=== PATIENT | female | born 1930 | race Caucasian/White ===

== ENCOUNTER → 2016-11-02 | Outpatient (CLI) | payer OTHER, BC ==
[~2016-11-02] MED LIST: ACET-1311 PO; ASCA500 PO; ASCO500C3 PO; ASPI81TA28 PO; CALC1TAB9 PO; CALC500T72 PO; CEFA500C PO; CHOL1000 PO; CLC100 PO; DAPT500I IV; DLCS PR; ENOX40IN SQ; FERROUS PO; FERROUS SULFATE PO; FLUT0.15 NAE; FRRG PO; LTR510 PO; LVNIS40 SQ; MAGN250T9 PO; MAGN400T6 PO; MISCCAP80 PO; MLXESC PO; MTR600X PO; MULT-513 PO; MULT-663 PO; MULTCHW PO; NXM/40 PO; OMEP20CA9 PO; PEGSOL8 PO; POLY150C4 PO; PRLSR20 PO; RXC5 PO; SIMV10TA2 PO; SIMV10TA5 PO; SULF800T23 PO; TRAM-10 PO; TRIA1SPR4; ZNT/150 PO
--- NOTE | 2016-11-16 10:24 | CODING QUERY MEDICAL NECESSITY ---
SUPPORTING DIAGNOSIS NEEDED A supporting diagnosis is required for the test/procedure performed on this patient in order for us to be reimbursed by the patient's insurance. Please provide a supporting diagnosis for the following test/procedure listed below next to the test name along with your signature. *If there is no additional diagnosis for this patient that would support the following test/procedure please document that below next to the test/procedure. Test(s)/Procedure(s) that require a supporting diagnosis: * DXA BONE DENSITY DIAGNOSIS: * DOS: 11/02/16 Provider Signature: Date: Thank you Chantel Waddell Health Information Management Once completed, please kindly fax back to [phone] For questions please call [phone]
== END | disposition home or self-care (01) ==
LOC: C.MAMM 14:25
PROVIDERS: ATTEND Internal Medicine
DX: M85.80 Other specified disorders of bone density and structure, unspecified site (principal)

== ENCOUNTER → 2016-11-18 | Outpatient (CLI) | payer OTHER, BC ==
[~2016-11-18] MED LIST changes: -FERROUS PO; -MAGN250T9 PO; -MTR600X PO; -NXM/40 PO; -PEGSOL8 PO; -ZNT/150 PO
[2016-11-18 15:15] LABS: BASO % 0.8 %; BASO ABS # 0.05 K/uL (0-0.2); COMPLETE YES; HEMATOCRIT 33.2 % (37-47); IG% 0.3 %; LYMPH % 28.7 %; LYMPH ABS # 1.73 K/uL (1.2-3.4); MEAN CELL VOLUME 82.4 fL (80-100); MEAN CORPUSCULAR HEMOGLOBIN 26.3 pg (25-34); MEAN CORPUSCULAR HGB CONC 31.9 g/dl (32-36); MEAN PLATELET VOLUME 8.6 fL (7.4-10.4); MONO % 12.1 %; NEUT % 57.1 %; PLATELET COUNT 414 K/uL (130-400); RED BLOOD COUNT 4.03 M/uL (4.2-5.4); WHITE BLOOD COUNT 6.02 K/uL (4.8-10.8)
[2016-11-18 15:27] LABS: ALT/SGPT 23 U/L (12-78); AST/SGOT 13 U/L (15-37); BLOOD UREA NITROGEN 26 mg/dl (7-18); BUN/CREATININE RATIO 30.1 (10-20); C-REACTIVE PROTEIN 2.16 mg/dl (0-0.29); CALCIUM 9.2 mg/dl (8.5-10.1); CARBON DIOXIDE 28 mmol/L (21-32); CHLORIDE 101 mmol/L (98-107); CREATININE 0.88 mg/dl (0.60-1.20); GLUCOSE 100 mg/dl (70-99); POTASSIUM 4.5 mmol/L (3.5-5.1); SODIUM 139 mmol/L (136-145)
[2016-11-18 15:31] LABS: ALB/GLOB RATIO 0.9 (0.9-2); ALKALINE PHOSPHATASE 85 U/L (45-117); CHOLESTEROL 151 mg/dl (0-200); CHOLESTEROL/HDL RATIO 1.8; HDL CHOLESTEROL 82 mg/dl; LDL CHOLESTEROL CALCULATED 61 mg/dl; TRIGLYCERIDES 42 mg/dl (0-150); VERY LOW DENSITY LIPOPROT CALC 8 mg/dl
== END | disposition home or self-care (01) ==
LOC: C.LAB1850 13:27
PROVIDERS: ATTEND Internal Medicine Infectious Disease
DX: Z00.00 Encounter for general adult medical examination without abnormal findings (principal); M00.9 Pyogenic arthritis, unspecified

== ENCOUNTER → 2016-11-24 | Day surgery (SDC) | payer OTHER, BC ==
[2016-11-17 09:56] VITALS: BMI 23.0
[~2016-11-24] VITALS: Ht 157.5 cm; Wt 57.7 kg
[~2016-11-24] MED LIST changes: +FENTANYL CITRATE INJ 50 MCG/1 ML 2 ML VIAL ONE; +LIDOCAINE HCL 2% 2 ML VIAL (20MG/ML) ONE; +PROPOFOL IV EMULSION 10 MG/ML 20 ML VIAL IV ONE; +SODIUM CHLORIDE 0.9% 500ML 500 ML IV ONE
[2016-11-24 13:16] VITALS: Ht 157.5 cm; Wt 57.7 kg
--- NOTE | 2016-11-24 13:43 | Endo History and Physical ---
History & Physical Date of Service: Nov 24, 2016. Chief Complaint: ANEMIA, CONSTIPATION, Referring Physician: DR. ROLLE History of Present Illness 86 yo presenting for evaluation of anemia for colonoscopy-asymptomatic Past Medical History Arthritis, Hypertension, CVA/TIA Past Surgical History Hx Cardiac Surgery: No Hx Internal Defibrillator: No Hx Pacemaker: No Hx Abdominal Surgery: Yes ("A COUPLE" D&C, APPY) Hx of Implantable Prosthesis: No Hx Post-Op Nausea and Vomiting: No Hx Cancer Surgery: No Hx Thoracic Surgery: No Hx Orthopedic: Yes (2000 LT TKA, 2013 RT TKA, 01/2016 RIGHT TKA REVISION, 2015 RT KNEE I&D ) Hx Urinary Tract Surgery: No Family History Colon CA Social History Smoking Status: Never Smoker Hx Substance Use: No Hx Alcohol Use: Yes (SOCIAL) Allergies Coded Allergies: Promethazine (Verified Allergy, Mild, CONTRACTED INTO POSITION, 11/24) Ceftriaxone (Unverified Adverse Reaction, Intermediate, GI ISSUES, 11/24/16 ) Meperidine (Verified Adverse Reaction, Mild, N/V, 11/24/16) Current Medications Reported Home Medications Medications Dose Route/Sig Max Daily Dose Days Date Category [Ferrous Sulfate] 150 Mg PO QAM 11/17/16 Reported Prilosec (Omeprazole) 20 Mg Cap 20 Mg PO BID 11/17/16 Reported Zocor (Simvastatin) 10 Mg Tab 10 Mg PO HS 08/18/16 Reported Probiotic (Probiotic Product) 1 Cap Cap 1 Tab PO QAM 08/18/16 Reported Bactrim Ds 800MG/160MG (Trimethoprim/Sulfamethoxazole) Tab 1 Tab PO BID 05/31/16 Reported Aspirin Ec (Aspirin) 81 Mg Tab 81 Mg PO QAM 04/01/16 Reported Nasacort Allergy 24Hr (Triamcinolone Acetonide (Nasal) 55 Mcg/Act Spr 2 [place] NA HS 02/04/16 Reported Citracal + D3 Maximum (Calcium Citrate-Vitamin D) 1 Tab Tab 1 Tab PO QAM 02/04/16 Reported Centrum Silver (Multiple Vitamins W/ Minerals) 1 Chw Chw 1 Tab PO QAM 11/03/13 Reported Lotrel 5MG/10MG (Amlodipine/Benazepril HCl) 5 Mg/10 Mg Cap 1 Tab PO QAM 04/28/06 Reported Vitamin C * (Ascorbic Acid) 500 Mg Tab 500 Mg PO QAM 04/28/06 Reported Vital Signs Weight (Kilograms): 57.73 Height (Feet): 5 Height (Inches): 2 Date Time Temp Pulse Resp B/P Pulse Ox O2 Delivery O2 Flow Rate FiO2 11/24/16 13:35 36.4 69 20 142/72 97 Room Air Physical Exam General Appearance: WD/WN, no apparent distress Respiratory/Chest: Respiratory effort: no dyspnea Auscultation: breath sounds normal, CTA except as noted, no wheezing, no rales/crackles Cardiovascular: Apical Impulse: not displaced Heart Auscultation: RRR, normal S1, normal S2 Abdomen: Bowel Sounds: normal Inspection & Palpation: soft, non-distended, no tenderness, guarding & rebound Assessment and Plan 86 yo presenting for colonoscopy for anemia
--- NOTE | 2016-11-24 14:12 | Anesthesiology Progress Note ---
Anesthesia Post Op Note Date & Time Nov 24, 2016 at 14:12 Vital Signs Pain Intensity: 0 Vital Signs Past 12 Hours Date Time Temp Pulse Resp B/P Pulse Ox O2 Delivery O2 Flow Rate FiO2 11/24/16 13:35 36.4 69 20 142/72 97 Room Air Notes Mental Status: alert / awake / arousable, participated in evaluation Pt Amnestic to Procedure: Yes Nausea / Vomiting: adequately controlled Pain: adequately controlled Airway Patency, RR, SpO2: stable & adequate BP & HR: stable & adequate Hydration State: stable & adequate Anesthetic Complications: no major complications apparent
--- NOTE | 2016-11-24 14:18 | GI REPORT ---
Procedure Date: 11/24/2016 1:42 PM Procedure: Colonoscopy Indications: Iron deficiency anemia Medicines: General Anesthesia Complications: No immediate complications. Estimated blood loss: None. Estimated Blood Loss: Estimated blood loss: none. Procedure: Pre-Anesthesia Assessment: - Pre-Anesthesia Assessment: - Prior to the procedure, a History and Physical was performed, and patient medications, allergies and sensitivities were reviewed. The patient's tolerance of previous anesthesia was reviewed. Please see [facility] for complete details. - The risks and benefits of the procedure and the sedation options and risks were discussed with the patient. All questions were answered and informed consent was obtained. - Patient identification and proposed procedure were verified prior to the procedure by the physician and the nurse. The procedure was verified in the pre-procedure area in the procedure room. After obtaining informed consent, the endoscope was passed carefully and meticuously under direct vision and only advanced when the lumen was clearly identified, C02 insuflation was utilized throughout the entirity of the procedure. Throughout the procedure, the patient's blood pressure, pulse, and oxygen saturations were monitored continuously. After I obtained informed consent, the scope was passed under direct vision. Throughout the procedure, the patient's blood pressure, pulse, and oxygen saturations were monitored continuously. The scope was introduced through the anus and advanced only to the transverse, identified by appendiceal orifice and ileocecal valve. The colonoscopy was performed without difficulty. The patient tolerated the procedure well. The quality of the bowel preparation was unsatisfactory. Findings: Copious quantities of stool was found in the descending colon, at the splenic flexure and in the transverse colon, precluding visualization. Impression: - Preparation of the colon was unsatisfactory. - Stool in the descending colon, at the splenic flexure and in the transverse colon. - No specimens collected. Recommendation: - Discharge patient to home (with escort). - Repeat colonoscopy at appointment to be scheduled because the bowel preparation was poor. - Return to referring physician as previously scheduled. Rodolfo Johnston MD 11/24/2016 2:18:48 PM This report has been signed electronically. Note Initiated On: 11/24/2016 1:42 PM
--- NOTE | 2016-11-24 14:20 | Discharge Instructions ---
Endoscopy Patient Instructions Date / Procedure(s) Performed Nov 24, 2016. Colonoscopy Allergy Information Coded Allergies: Promethazine (Verified Allergy, Mild, CONTRACTED INTO POSITION, 11/24) Ceftriaxone (Unverified Adverse Reaction, Intermediate, GI ISSUES, 11/24/16 ) Meperidine (Verified Adverse Reaction, Mild, N/V, 11/24/16) Discharge Date / Findings Nov 24, 2016. Poor preparation Will need to be rescheduled Medication Instructions Stopped Medication(s): IRON STOPPED ONE WEEK AGO. Provider Instructions Activity Restrictions - No exercising or heavy lifting for 24 hours. - Do not drink alcohol the day of the procedure. - Do not drive a car or operate machinery until the day after the procedure. - Do not make any important decisions or sign important papers in 24 hours after the procedure. Following Day: - Return to full activity which may include returning to work/school. Diet Start your diet with liquids and light foods (jello, soup, juice, toast). Then eat your usual diet if not nauseated. Treatment For Common After Affects For mild abdominal pain, bloating, or excessive gas: - Rest - Eat lightly - Lie on right side Follow-Up Information Follow-up with DR. ROLLE as scheduled Anesthesia Information What You Should Know You have had a procedure that required some medicine to reduce anxiety and discomfort. This treatment is called moderate sedation. After receiving the treatment, you may be sleepy, but you will be able to breathe on your own. The effects of the treatment may last for several hours. Follow these instructions along with Activity/Diet recommendations noted above: * Do NOT do anything where dizziness or clumsiness would be dangerous. * Rest quietly at home today, then you can be up and about tomorrow. * Have a responsible person stay with you the rest of today. * You may have had an I.V. today. If so, you may take the dressing off later today. Recommendations Call your doctor if: * Trouble breathing * Continuous vomiting for more than 24 hours * Temperature above 101 degrees * Severe abdominal pain or bloating * Pain not relieved by pain medicine ordered * There is increased drainage or redness from any incision * A large amount of rectal bleeding greater than 2-3 tablespoons. (If you had a polyp/s removed or have hemorrhoids, a small amount of blood - from the rectum is to be expected.) * You have any unanswered questions or concerns. IN THE EVENT OF A SERIOUS EMERGENCY, GO TO THE NEAREST EMERGENCY ROOM Your discharge instructions were prepared by provider Rodolfo Johnston. Patient Instructions Signature Page Milagros Reid Patient (or Guardian) Signature/Date: I have read and understand the instructions given to me by my caregivers. Caregiver/RN/Doctor Signature/Date: The above-named patient and/or guardian has received patient instructions on this date. + Original Patient Signature Page (only) stays with chart. Please make copy for patient.
[2016-11-24 14:37] VITALS: BP 144/62; PULSE 77; O2SAT 96
== END | disposition home or self-care (01) ==
LOC: C.GI 13:05
PROVIDERS: ATTEND Internal Medicine
DX: D50.9 Iron deficiency anemia, unspecified (principal); K59.00 Constipation, unspecified; I10 Essential (primary) hypertension; M19.90 Unspecified osteoarthritis, unspecified site; Z86.73 Personal history of transient ischemic attack (TIA), and cerebral infarction without residual deficits; Z90.89 Acquired absence of other organs; Z96.652 Presence of left artificial knee joint; Z68.23 Body mass index [BMI] 23.0-23.9, adult; Z80.0 Family history of malignant neoplasm of digestive organs

== ENCOUNTER → 2016-12-16 | Outpatient (CLI) | payer OTHER, BC ==
[~2016-12-16] MED LIST changes: -FENTANYL CITRATE INJ 50 MCG/1 ML 2 ML VIAL ONE; -LIDOCAINE HCL 2% 2 ML VIAL (20MG/ML) ONE; -PROPOFOL IV EMULSION 10 MG/ML 20 ML VIAL IV ONE; -SODIUM CHLORIDE 0.9% 500ML 500 ML IV ONE
[2016-12-16 13:12] LABS: BASO % 1.1 %; BASO ABS # 0.05 K/uL (0-0.2); COMPLETE YES; EOS % 1.3 %; HEMATOCRIT 33.4 % (37-47); IG% 0.2 %; LYMPH % 42.5 %; LYMPH ABS # 2.01 K/uL (1.2-3.4); MEAN CELL VOLUME 83.3 fL (80-100); MEAN CORPUSCULAR HEMOGLOBIN 26.2 pg (25-34); MEAN CORPUSCULAR HGB CONC 31.4 g/dl (32-36); MEAN PLATELET VOLUME 8.6 fL (7.4-10.4); MONO % 12.3 %; NEUT % 42.6 %; PLATELET COUNT 411 K/uL (130-400); RED BLOOD COUNT 4.01 M/uL (4.2-5.4); WHITE BLOOD COUNT 4.73 K/uL (4.8-10.8)
[2016-12-16 15:01] LABS: ALT/SGPT 24 U/L (12-78); AST/SGOT 15 U/L (15-37); BLOOD UREA NITROGEN 16 mg/dl (7-18); BUN/CREATININE RATIO 25.8 (10-20); CALCIUM 9.1 mg/dl (8.5-10.1); CARBON DIOXIDE 28 mmol/L (21-32); CHLORIDE 101 mmol/L (98-107); CREATININE 0.63 mg/dl (0.60-1.20); GLUCOSE 78 mg/dl (70-99); POTASSIUM 4.6 mmol/L (3.5-5.1); SODIUM 137 mmol/L (136-145)
[2016-12-16 15:04] LABS: ALB/GLOB RATIO 0.9 (0.9-2); ALKALINE PHOSPHATASE 83 U/L (45-117)
== END | disposition home or self-care (01) ==
LOC: C.LAB1850 12:07
PROVIDERS: ATTEND Internal Medicine Infectious Disease
DX: A49.01 Methicillin susceptible Staphylococcus aureus infection, unspecified site (principal)

== ENCOUNTER 2016-12-17 12:00 | Emergency (ER) | payer OTHER, BC ==
[~2016-12-17] VITALS: Ht 157.5 cm; Wt 57.0 kg
[~2016-12-17 12:00] MED LIST changes: -ACET-1311 PO; -ASCO500C3 PO; -CALC500T72 PO; -CEFA500C PO; -CHOL1000 PO; -CLC100 PO; -DAPT500I IV; -DLCS PR; -ENOX40IN SQ; -FLUT0.15 NAE; -FRRG PO; -LVNIS40 SQ; -MAGN400T6 PO; -MLXESC PO; -MULT-513 PO; -MULT-663 PO; -POLY150C4 PO; -PRLSR20 PO; -RXC5 PO; -SIMV10TA2 PO; -TRAM-10 PO
[2016-12-17 12:02] VITALS: Ht 157.5 cm; Wt 57.0 kg
--- NOTE | 2016-12-17 13:32 | EMERGENCY ROOM VISIT NOTE ---
History Report prepared by Reynaldo: Lucia Tavarez Under the Supervision of: Dr. Chikis Marr M.D. First contact with patient: 13:13 Chief Complaint: FALL Stated Complaint: FELL, LEFT WRIST PAIN, CUT NEAR EYE ON LEFT SIDE History of Present Illness The patient is a 86 year old female who presents to the Emergency Room with complaints of constant pain from injuries following a fall that occurred a few hours prior to arrival. The patient states that she was outside trimming her bushes when she lost her balance on the slope of the yard and fell onto the driveway. The patient fell onto her left hand and also hit the left side of the head. She denies LOC. The patient has a laceration near her left eye. She is also experiencing pain to her left wrist. She notes that she was able to stand up and walk around after the fall. The patient denies pain to any other location. She notes she takes an aspirin a day. Source of History: patient Onset: few hours COMPUTER GAME TESTER Position: other (global) Quality: other (fall) Timing: constant Associated Symptoms: No LOC Note: Patient has left wrist pain and laceration near left eye. Review of Systems See HPI for pertinent positives & negatives. A total of 10 systems reviewed and were otherwise negative. Past Medical & Surgical Medical Problems: (1) Benign hypertension (2) DJD (degenerative joint disease) (3) Hypertension (4) Replacement of total knee joint (5) Stiffness of knee joint (6) Stroke Surgical Problems: (1) History of appendectomy Family History Cancer Social History Smoking Status: Former Smoker Alcohol Use: occasionally Drug Use: none Housing Status: lives alone Current/Historical Medications Scheduled Amlodipine/Benazepril (Lotrel 5MG/10MG), 1 TAB PO QAM Ascorbic Acid (Vitamin C), 500 MG PO DAILY Aspirin (Aspirin Ec), 81 MG PO QAM Calcium Citrate-Vitamin D (Citracal + D3 Maximum), 1 TAB PO QAM Fluticasone Propionate (Nasal) (Flonase Allergy Relief), 2 SPRAYS MALICK DAILY Magnesium Oxide (Mag-Ox), 200 MG PO BID Multiple Vitamins W/ Minerals (Centrum Silver), 1 TAB PO QAM Omeprazole (Prilosec), 20 MG PO BID Polysaccharide Iron Complex (Ferrex 150), 150 MG PO DAILY Probiotic Product (Probiotic), 1 TAB PO QAM Simvastatin (Zocor), 10 MG PO HS Sulfa/Trimethoprim (Bactrim Ds 800MG/160MG), 1 TAB PO BID Scheduled PRN Tramadol (Ultram), 1 TABS PO Q6 PRN for Pain Allergies Coded Allergies: Promethazine (Verified Allergy, Mild, CONTRACTED INTO POSITION, 12/17) Ceftriaxone (Unverified Adverse Reaction, Intermediate, GI ISSUES, 12/17/16 ) Meperidine (Verified Adverse Reaction, Mild, N/V, 12/17/16) Physical Exam Vital Signs Date Time Temp Pulse Resp B/P Pulse Ox O2 Delivery O2 Flow Rate FiO2 12/17/16 16:39 36.5 82 18 126/69 98 12/17/16 15:00 82 18 126/69 12/17/16 12:02 36.5 84 17 147/77 98 Room Air Physical Exam Vital signs reviewed. General: Well-appearing elderly female, in no significant distress. HEENT: No scleral icterus, PERRLA, neck supple. Atraumatic. Small abrasion to left religion with 0.5 cm laceration to orbital rim, no active bleeding, edges are well approximated. Cervical spine non tender. Cardiovascular: Regular rate and rhythm, no extra sounds. Pulmonary: Clear to auscultation bilaterally, normal work of breathing. Abdomen: Soft, nontender, nondistended, positive bowel sounds. Musculoskeletal: Atraumatic, no peripheral edema. left wrist has dorsal swelling over distal radius, neurovascularly intact, full range of motion, no open skin. Neurologic: Patient awake alert and oriented x 3, full strength in all 4 extremities. Cranial nerves 2 through 12 grossly intact. Skin: Warm, dry, no rash Medical Decision & Procedures ER Provider Diagnostic Interpretation: X-ray results as stated below per my interpretation and radiologist interpretation. Other radiology results as stated below per my review and radiologist interpretation: LEFT WRIST 4 VIEWS HISTORY: Fall with left wrist deformity. COMPARISON: None. FINDINGS: The bones are osteopenic. There is a comminuted and slightly impacted fracture at the distal radius with intra-articular extension. No significant displacement. Diffuse soft tissue swelling. No dislocation. The carpal bones appear intact. No radiopaque foreign bodies. IMPRESSION: Distal left radius fracture as described above. Electronically signed by: Hector Blevins M.D. 12/17/2016 2:01 PM Dictated Date/Time: 12/17/2016 2:[address]AST CT DOSE: 537.48 mGy.cm HISTORY: Trauma fall, [facility] TECHNIQUE: Multiaxial CT images of the head were performed without the use of intravenous contrast. Comparison: None. Findings: The paranasal sinuses and mastoid air cells are clear. Chronic small vessel change throughout both cerebral hemispheres. Small old infarct right internal capsule. No acute intracranial hemorrhage. No midline shift. Impression: Age-related change. No acute process. Electronically signed by: Naman Lee M.D. 12/17/2016 2:46 PM Dictated Date/Time: 12/17/2016 2:46 PM Medications Administered Medications (Trade) Dose Ordered Sig/Abbie Route Start Time Stop Time Status Last Admin Dose Admin Tramadol HCl (Ultram Tab) 50 mg NOW STAT PO 12/17/16 13:37 12/17/16 13:39 DC 12/17/16 14:05 50 MG Procedure Location: Left lateral orbital rim Total length: 0.5 cm Complexity: Simple Verbal consent was obtained after the risks and benefits were explained, including but not limited to bleeding, scarring, infection, pain, and bone/joint /nerve damage. At this time, the risks of the procedure are less than the risks of NOT performing the procedure. A time out was taken and the correct patient and site identified. The skin was prepped with betadine. The skin was re- prepped with betadine and a sterile field set. The wound was explored for foreign bodies and none found. Examination revealed no injury to deep structures such as tendons, bone, or significant blood vessels. Debridement was not performed. The wound edges were approximated using Durabond. Hemostasis and excellent approximation was achieved. Antibacterial ointment and a sterile dressing applied. Detailed wound care instructions and signs and symptoms of infection reviewed with the patient. No complications and the patient tolerated the procedure well. ED Course 1330: Past medical records reviewed. The patient was evaluated in room C12. A complete history and physical examination was performed. 1337: Ultram Tab 50 mg PO. 1534: I reevaluated the patient. 1600: See procedure note for laceration repair. 1618: Upon reevaluation, the patient appeared to have improvement of her symptoms. I discussed findings with her. She verbalized agreement of the treatment plan. She was discharged home. Medical Decision The patient is a 86 year old female who presents to the ED with complaints of injuries from fall. Differentials include fracture, dislocation, intra- abdominal, pneumothorax, intrathoracic , intracranial, neurologic, as well as other traumatic pathologies were entertained. This patient was evaluated and appeared to be in no significant distress. Physical examination reveals a swelling over the left wrist with tenderness. CT scan of head was performed and is negative for acute intracranial abnormality. X-rays reveal a distal left radius fracture. Patient's laceration was approximated with Dermabond. Please see my procedure note above. Patient was placed in a volar splint. She was discharged with a prescription for tramadol 50 mg every 6 hours as needed for pain. She will follow-up with orthopedic surgery this week for reevaluation. She will return to the ER for worsening of symptoms or any medical concerns. Impression Primary Impression: Closed head injury Additional Impressions: Fracture of left distal radius Facial laceration Fall Scribe Attestation The scribe's documentation has been prepared under my direction and personally reviewed by me in its entirety. I confirm that the note above accurately reflects all work, treatment, procedures, and medical decision making performed by me. Departure Information Dispostion Home / Self-Care Prescriptions Tramadol (Ultram) 50 Mg Tab 1 TABS PO Q6 Y for Pain, #20 TAB Prov: Chikis Marr M.D. 12/17/16 Referrals Alec Mcarthur M.D. (PCP) Forms HOME CARE DOCUMENTATION FORM, IMPORTANT VISIT INFORMATION Patient Instructions My [facility] Additional Instructions Diagnosis: Fall, closed head injury, distal radius fracture Ultram 50 mg every 6 hours as needed for pain. Tylenol 650 mg every 6 hours as needed for pain. Ice and elevate the wrist as much as possible. Remove the splint if it becomes too tight or the fingers swell. Return to the ER for confusion, headaches, vomiting. [facility] fracture this week. Follow-up with your primary care physician regarding the head injury this week. Return to the ER for worsening of symptoms or any medical concerns. Problem Qualifiers Primary Impression: Closed head injury Encounter type: initial encounter Qualified Codes: S09.90XA - Unspecified injury of head, initial encounter Additional Impressions: Fracture of left distal radius Encounter type: initial encounter Fracture type: closed Fracture morphology : other intra-articular Qualified Codes: S52.572A - Other intraarticular fracture of lower end of left radius, initial encounter for closed fracture Facial laceration Encounter type: initial encounter Qualified Codes: S01.81XA - Laceration without foreign body of other part of head, initial encounter Fall Encounter type: initial encounter Qualified Codes: W19.XXXA - Unspecified fall, initial encounter
[2016-12-17] MEDS ORDERED: TRAMADOL HCL 50 MG TAB PO STA (13:37)
--- NOTE | 2016-12-17 14:03 | DIAGNOSTIC IMAGING REPORT ---
LEFT WRIST 4 VIEWS HISTORY: Fall with left wrist deformity. COMPARISON: None. FINDINGS: The bones are osteopenic. There is a comminuted and slightly impacted fracture at the distal radius with intra-articular extension. No significant displacement. Diffuse soft tissue swelling. No dislocation. The carpal bones appear intact. No radiopaque foreign bodies. IMPRESSION: Distal left radius fracture as described above. Electronically signed by: Hector Blevins M.D. 12/17/2016 2:01 PM Dictated Date/Time: 12/17/2016 2:00 PM
--- NOTE | 2016-12-17 14:48 | DIAGNOSTIC IMAGING REPORT ---
HEAD CT NONCONTRAST CT DOSE: 537.48 mGy.cm HISTORY: Trauma fall, [facility] TECHNIQUE: Multiaxial CT images of the head were performed without the use of intravenous contrast. Comparison: None. Findings: The paranasal sinuses and mastoid air cells are clear. Chronic small vessel change throughout both cerebral hemispheres. Small old infarct right internal capsule. No acute intracranial hemorrhage. No midline shift. Impression: Age-related change. No acute process. Electronically signed by: Naman Lee M.D. 12/17/2016 2:46 PM Dictated Date/Time: 12/17/2016 2:46 PM
[2016-12-17] MEDS ORDERED: POLY150C4 PO (15:12)
[2016-12-17] MEDS ORDERED: MAGN400T6 PO (15:13)
[2016-12-17] MEDS ORDERED: FLUT0.15 NAE (15:13)
[2016-12-17] MEDS ORDERED: ASCO500C3 PO (15:15)
[2016-12-17] MEDS ORDERED: TRAM-10 PO (16:19)
[2016-12-17 16:39] VITALS: BP 126/69; PULSE 82; TEMP 36.5; O2SAT 98
[2017-01-28] MEDS ORDERED: CEFA500C PO (09:54)
[2017-01-28] MEDS ORDERED: TRAM-10 PO (09:54)
[2017-03-25] MEDS ORDERED: SIMV10TA2 PO (14:28)
[2017-03-25] MEDS ORDERED: ASPI81TA28 PO (14:28)
[2017-03-25] MEDS ORDERED: MISCCAP80 PO (14:28)
[2017-03-25] MEDS ORDERED: LTR510 PO (14:30)
[2017-03-25] MEDS ORDERED: ENOX40IN SQ (14:31)
[2017-03-25] MEDS ORDERED: ACET-1311 PO (14:32)
[2017-03-25] MEDS ORDERED: TRAM-10 PO (14:32)
[2017-03-25] MEDS ORDERED: FLUT0.15 NAE (14:33)
[2017-03-25] MEDS ORDERED: PRLSR20 PO (14:33)
[2017-03-25] MEDS ORDERED: MULT-513 PO (14:34)
[2017-03-25] MEDS ORDERED: CALC500T72 PO (14:35)
[2017-03-25] MEDS ORDERED: CHOL1000 PO (14:36)
[2017-03-25] MEDS ORDERED: MULT-663 PO (14:36)
[2017-03-25] MEDS ORDERED: MAGN400T6 PO (14:37)
[2017-03-25] MEDS ORDERED: DAPT500I IV (14:38)
== END 2016-12-17 16:40 | disposition home or self-care (01) ==
LOC: C.EDB 12:02 → C.EDC 16:40
DX: S01.81XA Laceration without foreign body of other part of head, initial encounter (principal); S52.502A Unspecified fracture of the lower end of left radius, initial encounter for closed fracture; S09.90XA Unspecified injury of head, initial encounter; W01.0XXA Fall on same level from slipping, tripping and stumbling without subsequent striking against object, initial encounter; Y92.096 Garden or yard of other non-institutional residence as the place of occurrence of the external cause; I10 Essential (primary) hypertension; Z86.73 Personal history of transient ischemic attack (TIA), and cerebral infarction without residual deficits; M19.90 Unspecified osteoarthritis, unspecified site; Z87.891 Personal history of nicotine dependence; Z79.82 Long term (current) use of aspirin; Z79.899 Other long term (current) drug therapy

== ENCOUNTER → 2016-12-22 | Outpatient (CLI) | payer OTHER, BC ==
[~2016-12-22] MED LIST changes: +ACET-1311 PO; -ASCA500 PO; +ASCO500C3 PO; +CALC500T72 PO; +CEFA500C PO; +CHOL1000 PO; +CLC100 PO; +DAPT500I IV; +DLCS PR; +ENOX40IN SQ; -FERROUS SULFATE PO; +FLUT0.15 NAE; +FRRG PO; +LVNIS40 SQ; +MAGN400T6 PO; +MLXESC PO; +MULT-513 PO; +MULT-663 PO; +POLY150C4 PO; +PRLSR20 PO; +RXC5 PO; +SIMV10TA2 PO; +TRAM-10 PO; -TRIA1SPR4
[2016-12-22 14:39] LABS: FERRITIN 22.9 ng/ml (8.0-388.0)
== END | disposition home or self-care (01) ==
LOC: C.LAB1850 13:26
PROVIDERS: ATTEND Internal Medicine
DX: D64.9 Anemia, unspecified (principal)

== ENCOUNTER → 2017-01-07 | Outpatient (CLI) | payer OTHER, BC ==
[2017-01-07 16:32] LABS: BASO % 0.5 %; BASO ABS # 0.03 K/uL (0-0.2); COMPLETE YES; HEMATOCRIT 33.2 % (37-47); IG% 0.2 %; LYMPH ABS # 1.61 K/uL (1.2-3.4); MEAN CELL VOLUME 80.8 fL (80-100); MEAN CORPUSCULAR HEMOGLOBIN 25.5 pg (25-34); MEAN CORPUSCULAR HGB CONC 31.6 g/dl (32-36); MEAN PLATELET VOLUME 8.5 fL (7.4-10.4); MONO % 17.6 %; NEUT % 54.7 %; PLATELET COUNT 367 K/uL (130-400); RED BLOOD COUNT 4.11 M/uL (4.2-5.4)
[2017-01-07 16:52] LABS: ALT/SGPT 22 U/L (12-78); BLOOD UREA NITROGEN 27 mg/dl (7-18); BUN/CREATININE RATIO 34.4 (10-20); C-REACTIVE PROTEIN 2.39 mg/dl (0-0.29); CALCIUM 8.7 mg/dl (8.5-10.1); CARBON DIOXIDE 30 mmol/L (21-32); CHLORIDE 104 mmol/L (98-107); CREATININE 0.77 mg/dl (0.60-1.20); GLUCOSE 94 mg/dl (70-99); POTASSIUM 4.5 mmol/L (3.5-5.1); SODIUM 139 mmol/L (136-145)
[2017-01-07 16:55] LABS: ALKALINE PHOSPHATASE 98 U/L (45-117); AST/SGOT 18 U/L (15-37)
== END | disposition home or self-care (01) ==
LOC: C.LAB1850 15:23
PROVIDERS: ATTEND Internal Medicine Infectious Disease
DX: A49.01 Methicillin susceptible Staphylococcus aureus infection, unspecified site (principal)

== ENCOUNTER → 2017-01-11 | Outpatient (CLI) | payer OTHER, BC | END | disposition home or self-care (01) | LOC: C.LAB 17:43 | PROVIDERS: ATTEND Orthopaedic Surgery Sports Medicine | DX: S81.001A Unspecified open wound, right knee, initial encounter (principal); X58.XXXA Exposure to other specified factors, initial encounter ==

== ENCOUNTER → 2017-01-15 | Outpatient (CLI) | payer OTHER, BC | END | disposition home or self-care (01) | LOC: C.LAB 17:55 | PROVIDERS: ATTEND Orthopaedic Surgery Sports Medicine | DX: L92.9 Granulomatous disorder of the skin and subcutaneous tissue, unspecified (principal) ==

== ENCOUNTER → 2017-01-19 | Outpatient (CLI) | payer OTHER, BC ==
[2017-01-19 15:41] LABS: BASO % 0.6 %; BASO ABS # 0.04 K/uL (0-0.2); COMPLETE YES; EOS % 0.6 %; HEMATOCRIT 34.3 % (37-47); IG% 0.3 %; LYMPH % 34.1 %; LYMPH ABS # 2.14 K/uL (1.2-3.4); MEAN CELL VOLUME 82.7 fL (80-100); MEAN CORPUSCULAR HEMOGLOBIN 25.5 pg (25-34); MEAN CORPUSCULAR HGB CONC 30.9 g/dl (32-36); MEAN PLATELET VOLUME 8.6 fL (7.4-10.4); MONO % 12.9 %; NEUT % 51.5 %; PLATELET COUNT 398 K/uL (130-400); RED BLOOD COUNT 4.15 M/uL (4.2-5.4); WHITE BLOOD COUNT 6.27 K/uL (4.8-10.8)
[2017-01-19 16:08] LABS: BLOOD UREA NITROGEN 22 mg/dl (7-18); BUN/CREATININE RATIO 41.5 (10-20); C-REACTIVE PROTEIN 1.09 mg/dl (0-0.29); CALCIUM 8.9 mg/dl (8.5-10.1); CARBON DIOXIDE 32 mmol/L (21-32); CHLORIDE 103 mmol/L (98-107); CREATININE 0.52 mg/dl (0.60-1.20); GLUCOSE 102 mg/dl (70-99); POTASSIUM 4.1 mmol/L (3.5-5.1); SODIUM 140 mmol/L (136-145)
== END | disposition home or self-care (01) ==
LOC: C.LAB1850 14:20
PROVIDERS: ATTEND Physician Assistant
DX: L03.115 Cellulitis of right lower limb (principal)

== ENCOUNTER → 2017-02-09 | Outpatient (CLI) | payer OTHER, BC ==
[~2017-02-09] MED LIST changes: -POLY150C4 PO; -SULF800T23 PO
[2017-02-09 17:27] LABS: BASO % 0.8 %; BASO ABS # 0.05 K/uL (0-0.2); COMPLETE YES; EOS % 2.1 %; HEMATOCRIT 35.9 % (37-47); IG% 0.3 %; LYMPH % 35.7 %; LYMPH ABS # 2.33 K/uL (1.2-3.4); MEAN CELL VOLUME 84.9 fL (80-100); MEAN CORPUSCULAR HEMOGLOBIN 25.8 pg (25-34); MEAN CORPUSCULAR HGB CONC 30.4 g/dl (32-36); MEAN PLATELET VOLUME 9.1 fL (7.4-10.4); MONO % 11.7 %; NEUT % 49.4 %; PLATELET COUNT 356 K/uL (130-400); RED BLOOD COUNT 4.23 M/uL (4.2-5.4); WHITE BLOOD COUNT 6.52 K/uL (4.8-10.8)
== END | disposition home or self-care (01) ==
LOC: C.LAB1850 15:59
PROVIDERS: ATTEND Orthopaedic Surgery Sports Medicine
DX: L03.115 Cellulitis of right lower limb (principal); M25.861 Other specified joint disorders, right knee

== ENCOUNTER → 2017-02-09 | Outpatient (CLI) | payer OTHER, BC | END | disposition home or self-care (01) | LOC: C.LABSPEC 18:07 | PROVIDERS: ATTEND Orthopaedic Surgery Sports Medicine | DX: M25.861 Other specified joint disorders, right knee (principal) ==

== ENCOUNTER → 2017-02-23 | Outpatient (CLI) | payer OTHER, BC | END | disposition home or self-care (01) | LOC: C.LAB1850 13:31 | PROVIDERS: ATTEND Physician Assistant | DX: S81.002A Unspecified open wound, left knee, initial encounter (principal); Z86.19 Personal history of other infectious and parasitic diseases; X58.XXXA Exposure to other specified factors, initial encounter ==

== ENCOUNTER → 2017-03-01 | Outpatient (CLI) | payer OTHER, BC ==
[2017-03-01 15:23] LABS: BASO % 0.6 %; BASO ABS # 0.04 K/uL (0-0.2); COMPLETE YES; EOS % 1.6 %; HEMATOCRIT 36.7 % (37-47); IG% 0.1 %; LYMPH % 28.5 %; LYMPH ABS # 1.95 K/uL (1.2-3.4); MEAN CELL VOLUME 85.3 fL (80-100); MEAN CORPUSCULAR HGB CONC 30.5 g/dl (32-36); MEAN PLATELET VOLUME 8.9 fL (7.4-10.4); MONO % 8.8 %; NEUT % 60.4 %; PLATELET COUNT 367 K/uL (130-400); WHITE BLOOD COUNT 6.84 K/uL (4.8-10.8)
[2017-03-01 15:37] LABS: ALT/SGPT 23 U/L (12-78); AST/SGOT 14 U/L (15-37); BLOOD UREA NITROGEN 24 mg/dl (7-18); BUN/CREATININE RATIO 46.1 (10-20); CALCIUM 9.1 mg/dl (8.5-10.1); CARBON DIOXIDE 32 mmol/L (21-32); CHLORIDE 104 mmol/L (98-107); CREATININE 0.51 mg/dl (0.60-1.20); GLUCOSE 122 mg/dl (70-99); POTASSIUM 4.3 mmol/L (3.5-5.1); SODIUM 140 mmol/L (136-145)
[2017-03-01 15:40] LABS: ALKALINE PHOSPHATASE 87 U/L (45-117); C-REACTIVE PROTEIN 1.05 mg/dl (0-0.29)
== END | disposition home or self-care (01) ==
LOC: C.LAB1850 14:19
PROVIDERS: ATTEND Physician Assistant
DX: L03.115 Cellulitis of right lower limb (principal)

== ENCOUNTER → 2017-03-02 | Outpatient (CLI) | payer OTHER, BC ==
[2017-03-02 18:28] LABS: URINE APPEARANCE CLOUDY (CLEAR); URINE BILIRUBIN NEG (NEG); URINE COLOR DK YELLOW; URINE EPITHELIAL CELL AUTO >30 /lpf (0-5); URINE NITRITE NEG (NEG); URINE SPECIFIC GRAVITY 1.029 (1.000-1.030); UROBILINOGEN NEG (NEG); ZZUR CULT IF INDIC CLEAN CATCH YES
--- NOTE | 2017-03-02 18:31 | DIAGNOSTIC IMAGING REPORT ---
CHEST 2 VIEWS ROUTINE CLINICAL HISTORY: Preoperative chest COMPARISON STUDY: 05/31/2016 FINDINGS: The cardiac and mediastinal contours remain stable. There is no failure. There is mild chronic interstitial thickening with a basilar predominance. There are no pleural effusions. There is no lobar consolidation. Degenerative changes are present within the spine.[ IMPRESSION: No active disease in the chest. Electronically signed by: Burke Pierre M.D. 03/02/2017 6:29 PM Dictated Date/Time: 03/02/2017 6:28 PM
[2017-03-02 18:37] LABS: PROTHROMBIN TIME (PATIENT) 10.6 SECONDS (9.0-12.0)
[2017-03-02 18:38] LABS: MANUAL MICROSCOPIC REQUIRED? NO; REVIEW REQ? NO
== END | disposition home or self-care (01) ==
LOC: C.RAD 17:33
PROVIDERS: ATTEND Orthopaedic Surgery Sports Medicine
DX: Z01.812 Encounter for preprocedural laboratory examination (principal); Z01.810 Encounter for preprocedural cardiovascular examination

== ENCOUNTER 2017-03-04 12:30 | Inpatient (IN) | payer OTHER, BC ==
[2017-03-03 16:37] VITALS: BMI 23.0
--- NOTE | 2017-03-03 21:00 | HISTORY & PHYSICAL EXAMINATION ---
DATE OF ADMISSION: 03/04/2017 ADMISSION HISTORY AND PHYSICAL CHIEF COMPLAINT: Chronic right knee infection. HISTORY OF PRESENT ILLNESS: This is an 86-year-old female patient of Dr. Christopher'gurinder complaining of chronic right knee infection. She had an initial right total knee replacement January of 2014. She had an arthroscopic scar tissue removal in January of 2015. In February of 2016, she had a known infection with a poly exchange and I\T\D. Since then, she has had chronic infections with recent multiple sores all growing Staph aureus with cultures taken in the office. At this point in time, the patient wishes to proceed and was recommended to proceed with a right knee total knee revision, removal of all components and insertion of an antibiotic cement spacer. PAST MEDICAL HISTORY: Hypertension, history of a TIA, anemia, acid reflux, and hiatal hernia. SOCIAL HISTORY: Nonsmoker, occasional drinker. FAMILY HISTORY: Noncontributory. REVIEW OF SYSTEMS: The patient complains of chronic right knee infection, has been on chronic antibiotics and has failed recent treatment. Otherwise, denies any shortness of breath, chest pain, nausea, vomiting or any other joint complaints. MEDICATIONS: Include Lotrel 5/10 mg daily, Citrucel daily, vitamin C daily, multivitamin daily, aspirin 81 mg daily, Prilosec daily, simvastatin daily, and cefadroxil 500 mg b.i.d. ALLERGIES: INCLUDE DEMEROL, PHENERGAN AND ROCEPHIN. PHYSICAL EXAMINATION: GENERAL: Well-developed, well-nourished 86-year-old female in no acute distress. She is alert and oriented x3 and pleasant. HEENT: Normocephalic, atraumatic. Extraocular motions are intact. Pupils are equal and reactive to light. HEART: Regular rate and rhythm, no murmurs appreciated. LUNGS: Clear. ABDOMEN: Soft and nontender, bowel sounds are present. EXTREMITIES: Right knee reveals limited range of motion of 0-30 degrees. She is stable. She has got proximal wounds that are draining. She has got multiple wounds with swelling. She has no calf tenderness. Negative Homans sign. NEUROLOGIC: Neurovascularly, she is intact in her left lower extremity. She has had positive cultures from her wounds which all revealed staph aureus. 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 She has a history of hypertension, sleep apnea, transient ischemic attack, anemia, acid reflux, and hiatal hernia. PLAN: The patient was advised of her diagnosis. Indications, risks, benefits, and postop course have all been reviewed. The patient wishes to proceed with a right total knee arthroplasty, removal of all components with insertion of antibiotic cement spacer. Necessary consent forms, preoperative testing and clearances will be obtained. VAIBHAV
[~2017-03-04] VITALS: Ht 157.5 cm; Wt 56.8 kg
[2017-03-04] MEDS: TRANEXAMIC ACID INJ 1,000 MG in SODIUM CHLORIDE 0.9% 100ML 100 ML IV SCH ×2 (06:30→15:26)
[~2017-03-04 12:30] MED LIST changes: -ACET-1311 PO; +ACETAMINOPHEN 500 MG TAB PO SCH; +BUPIVACAINE 0.5 % 5 MG/1 ML PF 10ML VIAL ONE; +BUPIVACAINE/EPINEPHRINE 0.25% 1:200,000 30 ML VIAL ONE; -CALC500T72 PO; +CEFAZOLIN 1000MG/55 ML D5W 55 ML IV SCH; -CHOL1000 PO; -CLC100 PO; +CeleBREX 200 MG CAP PO SCH; -DAPT500I IV; +DEXAMETHASONE 4 MG TAB PO SCH; +DEXAMETHASONE SOD INJ 4 MG/ML VIAL ONE; -DLCS PR; -ENOX40IN SQ; -FRRG PO; +GABAPENTIN 300 MG CAP PO SCH; +LACTATED RINGER'S 1000ML 1,000 ML IV SCH; +LACTATED RINGER'S 1000ML 500 ML IV ONE; +LACTATED RINGER'S 1000ML IV SCH; -LVNIS40 SQ; +METOCLOPRAMIDE HCL 10 MG TAB PO SCH; -MLXESC PO; -MULT-513 PO; -MULT-663 PO; +PATIENT'S HEIGHT AND/OR WEIGHT NEEDED SCH; +POLYMYXIN B SULFATE 100,000 UNITS in NSS 100ML IR SCH; -PRLSR20 PO; -RXC5 PO; -SIMV10TA2 PO; +VANCOMYCIN INJ 400 MG in NSS 100ML IR SCH; +VANCOMYCIN INJ 850 MG in SODIUM CHLORIDE 0.9% 250ML 250 ML IV SCH
[2017-03-04 13:00] VITALS: BP 172/72; PULSE 68; TEMP 36.5; O2SAT 100; Ht 157.5 cm; Wt 56.8 kg
--- NOTE | 2017-03-04 13:27 | History & Physical Bridge Note ---
H&P Re-Evaluation Bridge Note: I have examined the patient, reviewed the History & Physical and in the interval since the performance of the History & Physical I have noted the following changes of clinical significance: No changes noted
[2017-03-04] MEDS ORDERED: VANCOMYCIN HCL 1000MG/20ML VIAL ONE ×3 (14:46→16:42)
[2017-03-04] MEDS ORDERED: TOBRAMYCIN SULF 1.2 GM VIAL (POWDER) ONE ×2 (14:48→16:41)
[2017-03-04] MEDS ORDERED: FENTANYL CITRATE INJ 50 MCG/1 ML 2 ML VIAL ONE ×3 (15:13→17:19)
[2017-03-04] MEDS ORDERED: LIDOCAINE HCL 2% 2 ML VIAL (20MG/ML) ONE ×2 (15:13→16:09)
[2017-03-04] MEDS ORDERED: PROPOFOL IV EMULSION 10 MG/ML 20 ML VIAL IV ONE ×2 (15:13→16:09)
[2017-03-04] MEDS ORDERED: PHENYLEPHRINE 100MCG/ML 5ML SYR IV PRN (15:15)
[2017-03-04] MEDS ORDERED: HYDROmorphone INJ 2 MG/ML SYR/VIAL IV PRN (15:15)
[2017-03-04] MEDS ORDERED: ONDANSETRON INJ 2 MG/ML 2 ML VIAL IV PRN ×2 (15:15→20:15)
[2017-03-04] MEDS ORDERED: EpHEDrine SULFATE INJ 50 MG/ML AMP IV PRN (15:15)
[2017-03-04] MEDS ORDERED: ATROPINE SULFATE 0.1 MG/ML 5ML SYR IV PRN (15:15)
[2017-03-04] MEDS ORDERED: ORTHO JOINT ANESTHETIC ONE (15:24)
[2017-03-04] MEDS ORDERED: BACITRACIN 50000 UNIT VIAL ONE ×3 (15:25→18:05)
[2017-03-04] MEDS ORDERED: POVIDONE-IODINE OP SOLN 30 ML BTL ONE (15:25)
[2017-03-04] MEDS ORDERED: DEXAMETHASONE SOD INJ 4 MG/ML VIAL ONE (16:09)
[2017-03-04] MEDS ORDERED: ONDANSETRON INJ 2 MG/ML 2 ML VIAL ONE (16:09)
[2017-03-04] MEDS ORDERED: KETAMINE HCL INJ 50 MG/ML 10 ML VIAL ONE (16:49)
[2017-03-04] MEDS ORDERED: MoRPHine SULFATE 2 MG/ML CARP IV PRN (20:15)
[2017-03-04] MEDS ORDERED: MAGNESIUM HYDROXIDE SUSP 30 ML UDC PO PRN (20:15)
[2017-03-04] MEDS ORDERED: BISACODYL 10 MG SUPP PR PRN (20:15)
[2017-03-04] MEDS ORDERED: ALUMINUM/MAGNESIUM/SIMETH (MAALOX MAX) 30 ML UDC PO PRN (20:15)
--- NOTE | 2017-03-04 20:27 | DIAGNOSTIC IMAGING REPORT ---
RIGHT KNEE 1 OR 2 VIEWS ROUTINE CLINICAL HISTORY: Verify count. Postoperative evaluation. COMPARISON: Right knee radiograph February 25, 2016. FINDINGS: A total right knee arthroplasty is noted. There is no periprosthetic fracture or lucency. Skin papi and drains are present. Innumerable small radiodensities adjacent to the right knee arthroplasty represent antibiotic impregnated beads. IMPRESSION: 1. Interval placement of antibiotic impregnated beads. Total right knee arthroplasty. No periprosthetic fracture or lucency. Surgical drains in place. 2. No unexpected radiopaque foreign bodies. Electronically signed by: Daniele Farias M.D. 03/04/2017 8:26 PM Dictated Date/Time: 03/04/2017 8:21 PM
--- NOTE | 2017-03-04 20:32 | Anesthesiology Progress Note ---
Anesthesia Post Op Note Date & Time March 04, 2017 at 20:31 Vital Signs Pain Intensity: 0 Vital Signs Past 12 Hours Date Time Temp Pulse Resp B/P Pulse Ox O2 Delivery O2 Flow Rate FiO2 03/04/17 13:00 36.5 68 18 172/72 100 Room Air Notes Mental Status: alert / awake / arousable, participated in evaluation Pt Amnestic to Procedure: Yes Nausea / Vomiting: adequately controlled Pain: adequately controlled Airway Patency, RR, SpO2: stable & adequate BP & HR: stable & adequate Hydration State: stable & adequate Anesthetic Complications: no major complications apparent
--- NOTE | 2017-03-04 20:41 | [facility] Operative Report ---
Operative Report Operative Date March 04, 2017. 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 Procedure(s) Performed right knee extensive debridement of knee joint ,bone ,subcutaneous and skin, synovectomy,excision extensive scar tissue,explant of patella component and tibial poly with tibial poly exchange and stimulan vancomycin bead placement and closure over drains Surgeon Dr. Christopher Hide Curer Surgeon(s) Kishore Gomes PA-C Estimated Blood Loss 75cc Findings deep infection,patella baja ,severe arthrofibrosis,sinus tracts. Specimens A. Explanted Hardware Right Knee b. cultures swab and soft tissue deep joint Drains 2 hemovac Anesthesia general Complication(s) None Disposition Surgical ICU Indications infected total knee with acute worsening of condition I attest to the content of the Intraoperative Record and any orders documented therein. Any exceptions are noted below.
[2017-03-04] MEDS ORDERED: NON-FORMULARY MEDICATION (Omeprazole (Prilosec) 20 MG) PO SCH (21:00)
--- NOTE | 2017-03-04 21:03 | Pharmacy Progress Note ---
Pharmacy Antibiotic Consult Date of Service: March 04, 2017. Pharmacy Dosing Scope Pharmacy is consulted to initiate Vancomycin IV dosing therapy, order appropriate labs and adjust drug dose/frequency. Subjective The patient is a 86 year old female admitted on 03/04/17. Objective Height (Feet): 5 Height (Inches): 2 Weight (Kilograms): 56.80 Micro Results: Item Value Date Time Gram Stain Received 03/04/17 0000 Tissue Knee Right Pending Gram Stain Received 03/04/17 0000 Drainage-Deep Knee Right Pending PATIENT: OLIVIA GLASER LOC: [facility] U # : [id number] AGE/SX: 86/F ROOM: REG : 02/09/[address]: Fidel Christopher M.D. : 1930 BED: DIS : STATUS: REG CLI TLOC: SPEC #: [id number] NOREEN: 02/09/17 STATUS: COMP REQ #: [id number] RECD: 02/09/[address]: Fidel Christopher M.D. SOURCE: JOINT FLSP ENTR: 02/09/[address]: Ava Dueñas, Assigned SPDESC: KNEE RIGHT ORDERED: AER/ADALBERTO CULTSMR Procedure Result Verified Site GRAM STAIN Final 02/10/17-943 RESULT MANY POLYS NO ORGANISMS SEEN OR AER/ADALBERTO CULT Final 02/14/17-1456 Organism 1 STAPHYLOCOCCUS AUREUS QUANITY RARE SENS SENSITIVITY TO FOLLOW ANAS NO ANAEROBES ISOLATED. 1. STAPHYLOCOCCUS AUREUS Target Route Dose RX AB Cost M.I.C. IQ ------ ----- ------ -- ------ -------- - ------ TRIMET/SULFA S <=0.5/ 9.5 * OXACILLIN S <=0.25 VANCOMYCIN S 1 ERYTHROMYCIN R >4 TETRACYCLINE S <=4 CLINDAMYCIN R <=0.5 DAPTOMYCIN S <=0.5 S = SENSITIVE I = INTERMEDIATE R = RESISTANT Assessment & Plan * 86 yo female admitted s/p antibiotic spacer and TKA. Pt with multiple infections s/p initial TKA in January 2014. Previous culture showing MSSA. Additional cultures taken today pending. Vancomycin * Estimated half life is 18 hours. * Pt received Vancomycin 15mg/kg IV preop dose. * Pt remains in ACU. Will begin further Vancomycin therapy upon admission to the floor. * Plan to begin a maintenance regimen of Vancomycin 15mg/kg IV dosed near half life of [id number]. Begin first dose sooner than 18 hours to make up for less than full loading dose given initially. * Will plan to obtain a trough level prior to the 3rd or 4rd maintenance dose. Pharmacy will continue to follow and will adjust dose/frequency as necessary. Thank you
[2017-03-04 21:30] VITALS: BP 159/72; PULSE 81; PULSE 84; TEMP 36.5; O2SAT 97
[2017-03-04 22:01] VITALS: BP 153/68; PULSE 75; TEMP 36.7; O2SAT 99
[2017-03-04] MEDS ORDERED: VANCOMYCIN CONSULT ACTIVE PRN (22:15)
[2017-03-04] MEDS: OXYCODONE HCL 10 MG TABCR (OXYCONTIN) PO SCH (22:25)
[2017-03-04 22:33] VITALS: BP 156/81; PULSE 78; TEMP 36.4; O2SAT 98
[2017-03-04] MEDS: SENNA 8.6 MG TAB PO SCH (22:40)
[2017-03-04] MEDS: DOCUSATE SODIUM 100 MG CAP PO SCH (22:40)
[2017-03-04] MEDS: SIMVASTATIN 10 MG TAB PO SCH (22:41)
[2017-03-04] MEDS: ACETAMINOPHEN 500 MG TAB PO SCH (22:41)
[2017-03-04] MEDS: ASPIRIN 81 MG ECTAB PO SCH (22:41)
[2017-03-04] MEDS: MAGNESIUM OXIDE 400 MG TAB PO SCH (22:41)
[2017-03-04] MEDS: D5W AND 1/2NSS + 20MEQ KCL 1,000 ML IV SCH (22:42)
[2017-03-04 23:30] VITALS: BP 135/64; PULSE 68; TEMP 36.4; O2SAT 100
[2017-03-04] MEDS: VANCOMYCIN INJ 850 MG in SODIUM CHLORIDE 0.9% 250ML 250 ML IV SCH (23:31)
[2017-03-05] VITALS (7 sets, daily range): BP systolic 111–150; BP diastolic 54–71; PULSE 67–83; TEMP 36.4–36.9; O2SAT 92–100
--- NOTE | 2017-03-05 02:05 | OPERATIVE REPORT ---
DATE OF OPERATION: 03/04/2017 INDICATION FOR PROCEDURE: An 86-year-old female with a long history of right knee complications after a total knee replacement. She had an uneventful left knee replacement in the past, was scheduled for a right knee replacement and had that and everything went well, but she developed arthrofibrosis, underwent manipulation under anesthesia, eventual arthroscopic releases, excision of scar tissue, but had unremitting arthrofibrosis. Decision was made after consultation to proceed with downsizing the femoral component to increase range of motion and excise scar tissue as the patient had developed significant patella baja over time. This surgery unfortunately was complicated by infection, had a poly exchange, and was placed on long-term suppressive antibiotics. The patient had some chronic edema in the leg, was having no pain, but unfortunately had recurrent arthrofibrosis and her motion which originally was 90 degrees of flexion after revision surgery dropped back down to only 15-20 degrees of flexion max. She went to painter helper, had a test injection for some pain study and developed increased pain in her knee after that and developed an area of proud flesh over the superolateral knee, it was not clear whether this was a sinus tract or not. She did not have knee effusion and was not particularly painful. This was treated conservatively at first but developed another area of infection in the inferolateral patella, adjacent to the patellar tendon area, and it was felt that she had deep infection at this time, this was aspirated and all cultures grew staph which had similar sensitivities to her original surgery and she was felt to have a deep infection. She did not respond to the suppressive antibiotics, and although she had some improvement in her sed rate and CRP, it was felt that we had to proceed with surgical intervention to remove her implants and debride the joint. Because of her severe patella baja, she most likely is going to be a candidate for knee fusion and is unlikely going to be getting meaningful range of motion after any revision knee replacement. PREOPERATIVE DIAGNOSIS: Left knee infection deep status post total knee revision arthroplasty. POSTOPERATIVE DIAGNOSIS: Same with clear evidence of a sinus tract superolateral knee and 2 areas with subcutaneous skin necrosis inferomedial and inferolateral, adjacent to the patellar tendon over the joint line. Well fixed components with evidence of deep infection with a 6 femoral component which was unable to be removed with conventional cement removal equipment and technique. PROCEDURE: Extensive debridement of scar tissues, synovium, cement removal, and bone debridement, with attempted removal of well-fixed femoral component, with debridement of sinus tracts, reaming subcutaneous tissues and skin when necessary, with debridement being sharp debridement and with rongeur and Versajet debridement. With polyethylene exchange with extraction of patella component and cement and placement of Stimulan antibiotic beads intraarticular and subcutaneous. SURGEON: Dr. Christopher. AUDIO VIDEO MECHANIC: BRUNILDA Ware. ANESTHESIA: General LMA. OPERATIVE PROCEDURE: The patient was taken to the operating room and anesthetized under general anesthetic. We did have positive cultures which were obtained in the office already which matched her previous cultures and I did give her preop vancomycin and she also had Ancef. Then, her leg was examined which demonstrated she had 0 through 15-20 degrees of flexion only and had a fluctuant area in the anteromedial joint line which was felt to be under the skin and she also had a similar swollen area which had the appearance of proud flesh which had not penetrated the skin on the inferolateral area of the knee, which was felt to be likely beginning of a sinus tract and then she had superomedially a small sinus tract. Incision was benign, she had no knee effusion, and she had extensive thickening of the soft tissues chronically and a patella baja. Pneumatic tourniquet was placed about her upper thigh. Her leg was sterilely prepped and draped, it was elevated but not exsanguinated, and pneumatic tourniquet was raised to 300 mmHg. First incision was made through her previous scar, extended slightly more proximally. She had extensive thick scar tissue, 3 cm thick at least. This incision was carried down to the quad tendon. We made the incision a little longer superiorly so we could get down to the natural plane over the quad tendon and then developed that plane distally until we exposed the extensor mechanism which revealed an intact extensor mechanism but a patella baja which was basically locked with patellar scar tissue with no patellar mobility. First, we did track the sinus tract and it was extending through the medial vastus medialis quad tendon area, this was felt to be a true sinus tract. This was debrided into subcutaneous tissues and then the sinus tract. Then, we opened up the medial retinaculum and extended this up into the mid third of the quadriceps tendon and up through the full length of the quad tendon and then carried this down to the medial tibial tubercle and pes tendon area. When we dissected the soft tissues off the medial and lateral sides of the knee, there was sinus tracts that were coming out of the joint into subcutaneous tissues, so the subcutaneous tissues were debrided bilaterally inferomedially and inferolaterally and the outer soft tissue of the fascia was debrided as well where the sinus tracts were coming out of the joint initially. Then, at first I released the scar tissue off the proximal and medial tibial plateau and then did electrocautery synovectomy just removing very thick layer of scarred synovium along the medial retinaculum, up under the medial quad. Thickened, scarred patellar tendon was debrided off the scarred infrapatellar fat pad, leaving the patellar tendon intact, and the exposure was still tight, so I did do a formal quad snip proximally laterally. The snip was made at a 45-degree angle into the quad laterally, extending all the way to the quad tendon. This helped free up some more mobility so we could do synovectomy under the quad tendon around the patella to get better exposure of the infrapatellar scar tissue so that could be removed. Then, I went ahead and used an oscillating saw to remove the patella component and debrided all the cement and plastic out of the patella. There was a little area of pus under the patella component toward the lateral side. Once the joint was opened, we had not done any irrigation, yet we did get cultures intraarticularly. At this point, we had enough exposure to flex the knee slightly. I did flex the knee up to inspect the polyethylene so we could remove the poly, but some of the medial patellar tendon avulsed off the tibial tubercle, the lateral portion was still intact, and that did give us enough exposure to remove the poly using a curved osteotome. This gave us more flexibility so the gutters could be debrided, the posterior synovium could be debrided. Once the poly was removed, there was a large area of fibrinous material behind the post in the notch area, looked suspicious for infectious material, so I did send this for culture as well. I did not send any frozen sections as this was clearly infected. At this time then, we irrigated out the knee copiously with multiple liters of antibiotic solution with bacitracin. Then, I proceeded to use the Ultradrive to remove the cement around the anterior flange of the femoral component, around the lateral medial side of the femoral component, most distal aspect of the femoral component, the posterior aspect, the anterior aspect, and all the cement was removed from either side until we were looking at the box in this posterior stabilized component, it was a closed box, long stem femoral component. At this point, all the cement was removed that we could remove using flexible osteotomes, artist chisels, and a pituitary rongeur. At this time, we attempted to excise the femoral implant, but it was very well fixed and unable to be removed. This included malleting the surface to impact it and try to break the cement and using an extraction device and bone tamp, it was completely solid. Tibia was also noted to be solid. There were some more minor erosions around the edges of the tibial implant. The bone was debrided there. At this point, it was about 2 hours on tourniquet, so we let the tourniquet down to let the leg revascularize for 20 minutes, and then re-elevated the leg and placed tourniquet back up. At this time, I felt I was unable to remove this femoral component with conventional means and she is 86 and did not want to cause any further trauma at this point in time, so it was felt that we would do a staged procedure at this time and go ahead with a polyethylene exchange. We put some trials in place and felt that a 3 x 30 mm poly would give more stability to the knee and so we decided to go ahead with that and placed Stimulan beats within the joint. It was noted that she had some bulging tissue on the inferolateral knee joint area, so I elliptically excised that tissue, debrided the subcutaneous tissues, irrigated out copiously. At this time, we went ahead and did have more thorough debridement with the Versajet along the other soft tissues and subcutaneous tissues where the chronic sinus tracts were debrided. The skin was so thin over the inferolateral area that the friable skin had opened up into a small opening through the skin in that area where there was almost the development of a sinus tract. So this skin was debrided and we debrided the quad tendon, bony surfaces around the implants with pulsatile lavage antibiotic solution and with Versajet. At this point, I then changed instruments and drapes and gloves and then we went ahead and implanted the Seema Triathlon size 3 posterior stabilized 13 mm thick component. Then, around the flanges and under the flanges of the femoral component, the Stimulan beads were packed along all the bony surfaces and we also placed Stimulan beads into each area where the sinus tracts were. Placed Stimulan beads throughout the intraarticular joint and then placed 2 Hemovac drains out. Then, the quad snip was closed with [id number] #1 Vicryl sutures. The quadriceps tendon, medial retinaculum, and medial patellar tendon was closed with interrupted #1 Vicryl sutures. I tested the knee with holding her leg, leaving gravity, allowed flexion of the knee and she had about 10 degrees of flexion and her extensor mechanism was intact. The Stimulan beads were placed into the subcutaneous tissues after we did more irrigation and a Betadine soak and then the subcutaneous tissues were closed with interrupted 2-0 Vicryl and skin was closed with papi and the areas of the debrided sinus tracts were closed with nylon sutures and sterile dressings were applied and the tourniquet was let back down and then a knee immobilizer holding the knee in full extension was applied. The patient had blood loss estimated at about 75 mL and otherwise tolerated the procedure well. BRUNILDA Ware, was my personal care assistant, he functioned as personal care assistant for the entire procedure. He assisted in patient positioning, soft tissue retraction, instrument management, assisted in debridement, and assisted in fascial, subcutaneous and skin closures, and will participate in postoperative care of the patient. I attest to the content of the Intraoperative Record and any orders documented therein. Any exceptio ns are noted below.
[2017-03-05] MEDS: OXYCODONE HCL IR 5 MG TAB (IMMEDIATE RELEASE) PO PRN (02:40)
[2017-03-05] MEDS ORDERED: VANCOMYCIN INJ 850 MG in SODIUM CHLORIDE 0.9% 250ML 250 ML IV SCH (06:00)
[2017-03-05] MEDS ORDERED: POLYMYXIN B SULFATE 100,000 UNITS in NSS 100ML IR SCH (06:00)
[2017-03-05] MEDS ORDERED: VANCOMYCIN INJ 400 MG in NSS 100ML IR SCH (06:00)
[2017-03-05] MEDS: ACETAMINOPHEN 500 MG TAB PO SCH ×3 (06:14→22:45)
[2017-03-05] MEDS: TRAMADOL HCL 50 MG TAB PO PRN ×3 (06:30→21:00)
[2017-03-05] MEDS: D5W AND 1/2NSS + 20MEQ KCL 1,000 ML IV SCH (06:31)
[2017-03-05 07:37] LABS: HEMATOCRIT 34.7 % (37-47); MEAN CELL VOLUME 83.4 fL (80-100); MEAN CORPUSCULAR HGB CONC 31.1 g/dl (32-36); MEAN PLATELET VOLUME 8.9 fL (7.4-10.4); PLATELET COUNT 371 K/uL (130-400); RED BLOOD COUNT 4.16 M/uL (4.2-5.4); WHITE BLOOD COUNT 8.51 K/uL (4.8-10.8)
--- NOTE | 2017-03-05 07:52 | Anesthesiology Progress Note ---
Anesthesia Post Op Note Date & Time March 05, 2017 at 07:51 Vital Signs Pain Intensity: 8.5 Vital Signs Past 12 Hours Date Time Temp Pulse Resp B/P Pulse Ox O2 Delivery O2 Flow Rate FiO2 03/05/17 07:23 36.6 72 18 122/67 92 Room Air 03/05/17 03:40 36.9 83 16 150/70 99 Nasal Cannula 2.0 03/05/17 00:30 36.4 70 16 124/63 100 Nasal Cannula 2.0 03/04/17 23:39 Nasal Cannula 2.0 03/04/17 23:30 36.4 68 16 135/64 100 Nasal Cannula 2.0 03/04/17 22:33 36.4 78 16 156/81 98 Nasal Cannula 2.0 03/04/17 22:01 36.7 75 16 153/68 99 Nasal Cannula 2.0 03/04/17 21:30 Nasal Cannula 2.0 03/04/17 21:30 36.5 84 14 159/72 97 Nasal Cannula 2.0 03/04/17 21:30 Nasal Cannula 2.0 03/04/17 21:30 36.5 81 16 159/72 97 Nasal Cannula 2.0 03/04/17 21:15 36.8 79 20 147/74 97 Nasal Cannula 2 03/04/17 21:05 36.8 80 16 159/76 97 Nasal Cannula 2 03/04/17 20:55 85 17 163/78 97 Nasal Cannula 2 03/04/17 20:45 81 16 163/87 100 Mask 10 03/04/17 20:35 82 16 168/79 100 Mask 10 03/04/17 20:25 36.7 85 12 163/82 100 Mask 10 Notes Mental Status: alert / awake / arousable, participated in evaluation Anesthetic Complications: no major complications apparent
[2017-03-05 08:33] LABS: CALCIUM 9.3 mg/dl (8.5-10.1); CREATININE 0.59 mg/dl (0.60-1.20); POTASSIUM 4.4 mmol/L (3.5-5.1)
--- NOTE | 2017-03-05 08:53 | Orthopedic Progress Note ---
Orthopedic Progress Note Date of Service March 05, 2017. Subjective Post OP Day: 1 Reports: feeling well, pain controlled w PO medications, Denies: SOB, calf pain , chest pain, complaints, light headedness, nausea / vomiting Additional Notes: Intra op gram stain and cxs pending this AM. Objective calves soft nontender, N/V intact, capillary refill less than 2 sec., dressing C /D/I, A&O x3, toes mobile [place] in tact. Date Time Temp Pulse Resp B/P Pulse Ox O2 Delivery O2 Flow Rate FiO2 03/05/17 07:23 36.6 72 18 122/67 92 Room Air 03/05/17 03:40 36.9 83 16 150/70 99 Nasal Cannula 2.0 03/05/17 00:30 36.4 70 16 124/63 100 Nasal Cannula 2.0 03/04/17 23:39 Nasal Cannula 2.0 03/04/17 23:30 36.4 68 16 135/64 100 Nasal Cannula 2.0 03/04/17 22:33 36.4 78 16 156/81 98 Nasal Cannula 2.0 03/04/17 22:01 36.7 75 16 153/68 99 Nasal Cannula 2.0 03/04/17 21:30 Nasal Cannula 2.0 03/04/17 21:30 36.5 84 14 159/72 97 Nasal Cannula 2.0 03/04/17 21:30 Nasal Cannula 2.0 03/04/17 21:30 36.5 81 16 159/72 97 Nasal Cannula 2.0 03/04/17 21:15 36.8 79 20 147/74 97 Nasal Cannula 2 03/04/17 21:05 36.8 80 16 159/76 97 Nasal Cannula 2 03/04/17 20:55 85 17 163/78 97 Nasal Cannula 2 03/04/17 20:45 81 16 163/87 100 Mask 10 03/04/17 20:35 82 16 168/79 100 Mask 10 03/04/17 20:25 36.7 85 12 163/82 100 Mask 10 03/04/17 13:00 36.5 68 18 172/72 100 Room Air Laboratory Results 24 Hours: Test 03/05/17 06:30 Hematocrit 34.7 % Hemoglobin 10.8 g/dL Assessment & Plan Assessment: POD #1, right knee extensive debridement of knee joint ,bone ,subcutaneous and skin,synovectomy,excision extensive scar tissue,explant of patella component and tibial poly with tibial poly exchange and stimulan vancomycin bead placement and closure over drains Plan: PT/ OT- WBAT with immobilizer, NO knee flexion. DVT proph- ASA Await cultures and ID input, on Vanco currently. Disposition- Home w PICC and 6 wks antibxs per ID. Inhouse Planning Pain Management: Oxycontin, Ultram, Morphine, PO Tylenol, Oxy IR DVT Prophylaxis: TEDs, SCDs, ASA Discharge Planning Discharge Planning: home DVT Prophylaxis: ASA
[2017-03-05] MEDS ORDERED: NON-FORMULARY MEDICATION (Probiotic Product (Probiotic) 1 TAB) PO SCH (09:00)
[2017-03-05] MEDS ORDERED: BENAZEPRIL HCL 10 MG TAB PO SCH (09:00)
[2017-03-05] MEDS ORDERED: FLUTICASONE PROPIONATE NA SPR 16 GM BTL NAE SCH (09:00)
[2017-03-05] MEDS: MAGNESIUM OXIDE 400 MG TAB PO SCH ×2 (09:33→21:00)
[2017-03-05] MEDS: MULTIVITAMIN TAB PO SCH (09:33)
[2017-03-05] MEDS: ASPIRIN 81 MG ECTAB PO SCH ×2 (09:33→20:58)
[2017-03-05] MEDS: DOCUSATE SODIUM 100 MG CAP PO SCH ×2 (09:33→20:58)
[2017-03-05] MEDS: CALCIUM 600MG + VIT D 400 IU TAB PO SCH (09:34)
[2017-03-05] MEDS: FERROUS GLUCONATE 324 MG TAB PO SCH ×3 (09:35→17:54)
[2017-03-05] MEDS: PANTOprazole SOD 40 MG TAB PO SCH (09:35)
[2017-03-05] MEDS: AMLODIPINE BESYLATE 5 MG TAB PO SCH (09:36)
[2017-03-05] MEDS: OXYCODONE HCL 10 MG TABCR (OXYCONTIN) PO SCH ×2 (09:41→20:59)
[2017-03-05] MEDS ORDERED: NURSING VERBAL MED ORDER ONE (09:45)
--- NOTE | 2017-03-05 10:26 | Progress Note ---
Progress Note Date of Service March 05, 2017. Progress Note ID Consult Dictated #[id number] A/P: 1. Prosthetic knee infection, chronic, MSSA -Continue vanco, follow final cultures -check blood cultures -will need weekly labs, cbc, cmp, esr, vanco trough while on abx - maintain 15- 20 -will need min 6 weeks IV abx -thank you
--- NOTE | 2017-03-05 11:11 | INFECT. DISEASE CONSULTATION ---
DATE OF CONSULTATION: 03/05/2017 REQUESTING PHYSICIAN: Dr. Christopher. HISTORY OF PRESENT ILLNESS: This is an 86-year-old female who was admitted for knee surgery. She initially had a right knee replacement in January 2014. She then unfortunately developed an infection in February 2016 with MSSA. She was initially treated with IV Rocephin. However, she had significant GI disturbance related to this and was ultimately changed to vancomycin and rifampin. She also had a reaction to rifampin and this was discontinued. She did complete a long-term course of IV antibiotics in March of last year and then was transitioned to oral suppressive antibiotics. In the past few weeks she has noticed a superficial abscess over the knee. She has been seen by both infectious diseases as well as orthopedic surgery in the office. She was treated with antibiotics and wound care. She did have an outpatient wound culture dated February 23, which grew MSSA with identical sensitivities to her previous cultures. She was continually followed with orthopedic surgery and the decision was made after a new lateral abscess developed last week to undergo surgical revision. She was on cefadroxil up until the time of admission. She has been afebrile at home. Her only complaint is of pain in the knee. She denied any draining abscess at the time of admission. Her white blood cell count has been within normal limits. She was tolerating her antibiotics well. She denies any nausea, vomiting or diarrhea. All remaining review of systems are reviewed and are negative. She was to undergo removal of hardware and placement of a spacer; however, she could not have the entire joint removed and underwent extensive bone debridement, debridement of sinus tract, poly exchange was performed instead. She tolerated this procedure well. She is complaining of some pain today but it is well controlled. She has been working with physical therapy this morning. She is tolerating her vancomycin without difficulty. PAST MEDICAL HISTORY: Significant for hypertension, TIA, anemia, GERD and hiatal hernia. PAST SURGICAL HISTORY: As above. SOCIAL HISTORY: Negative for tobacco use, alcohol use or drug use. FAMILY HISTORY: Noncontributory. ALLERGIES: INCLUDE DEMEROL, PHENERGAN AND ROCEPHIN. She also has had intolerance to rifampin. CURRENT MEDICATIONS: Include Flonase, Norvasc, Caltrate, multivitamins, Protonix, iron, vancomycin, potassium, Tylenol, magnesium, Zocor, OxyContin, Senokot, Colace, Ecotrin, morphine, Roxicodone, milk of magnesia, Dulcolax, Maalox, Zofran and Ultram. PHYSICAL EXAMINATION: VITAL SIGNS: She is afebrile, pulse 72, respiratory rate 18, blood pressure 122/67, oxygen saturation is 92% on room air. GENERAL: She is awake, alert and oriented x3. She is in no acute distress. HEENT: Mucous membranes are dry. Extraocular muscles are intact. HEART: Regular. LUNGS: Clear bilaterally. ABDOMEN: Soft, nontender, nondistended. EXTREMTIES: There is no left lower extremity edema, right lower extremity dressing is clean, dry and intact. Drain is in place with serosanguineous fluid. LABORATORY STUDIES: CBC reveals a white blood cell count of 8.5, hemoglobin 10.8, platelets are 371. Chemistry panel reveals a sodium of 138, potassium 4.4, chloride 102, bicarbonate 29, BUN 15, creatinine 0.5, glucose is 147. OR culture is now growing a Staph species, office cultures on February 23 are growing MSSA. IMAGING DATA: knee x-ray done yesterday shows antibiotic beads placed with no foreign bodies noted. ASSESSMENT AND PLAN: 1. 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 She will continue on her current antibiotics. Blood cultures will be obtained. She will likely need a prolonged course of intravenous vancomycin with weekly laboratory studies. We will follow along with you, both inpatient upon discharge as well. Thank you for this consultation.
--- NOTE | 2017-03-05 12:02 | Medical Consult ---
Consultation Date of Consultation: March 05, 2017. Attending Physician: Fidel Christopher M.D. 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 The patient originally had a right TKA in 2013. She has had subsequent chronic infections with MSSA and is on chronic antibiotics. She follows with Shani Nathan from infectious disease. The patient underwent removal of hardware and insertion of an antibiotic spacer yesterday. She currently denies any significant pain in the knee. She has no other complaints. She is passing gas and tolerating a diet. No bowel movements as of yet. Urinating on her own. She denies any chest pain or pressure. No shortness of breath. Denies heart palpitations. No dizziness or lightheadedness. Past Medical/Surgical History Medical Problems: Hypertension TIA Anemia GERD Obstructive sleep apnea Carotid artery stenosis Family History Cancer Family history of gastric and pancreatic cancer Social History Smoking Status: Former Smoker Drug Use: none Housing Status: lives alone Allergies Coded Allergies: Promethazine (Verified Allergy, Mild, CONTRACTED INTO POSITION, 03/04) Ceftriaxone (Unverified Adverse Reaction, Intermediate, GI ISSUES, 03/04/17 ) Meperidine (Verified Adverse Reaction, Mild, N/V, 03/04/17) Home Medications Simvastatin 10 mg daily Omeprazole 20 mg BID Norvasc 5 mg and accommodation with benazepril 10 mg daily Aspirin 81 mg daily Iron 3 times daily Current Inpatient Medications Current Inpatient Medications Medications (Trade) Dose Ordered Sig/Abbie Route Start Time Stop Time Status Last Admin Dose Admin Magnesium Oxide (Mag-Ox Tab) 200 mg BID PO 03/04/17 21:00 04/03/17 20:59 03/05/17 09:33 200 MG Simvastatin (Zocor Tab) 10 mg HS PO 03/04/17 21:00 04/03/17 20:59 03/04/17 22:41 10 MG Amlodipine Besylate (Norvasc Tab) 5 mg QAM PO 03/05/17 09:00 04/04/17 08:59 03/05/17 09:36 5 MG Calcium/Vitamin D (Caltrate Plus Tab) 1 tab QAM PO 03/05/17 09:00 04/04/17 08:59 03/05/17 09:34 1 TAB Morphine Sulfate 2 mg 2 mg Q4HWA PRN IV 03/04/17 20:15 03/18/17 20:14 Potassium Chloride/Dextrose/ Sod Cl (D5W And 1/2nss + 20meq KCl) 1,000 ml @ 100 mls/hr Q10H IV 03/04/17 22:30 03/05/17 20:05 03/05/17 06:31 100 MLS/HR Oxycodone HCl (Roxicodone Immediate Rel Tab) 1 TABLET FOR PAIN RATING... Q4H PRN PO 03/04/17 20:15 03/18/17 20:14 03/05/17 02:40 10 MG Oxycodone HCl (Oxycontin Tab) 10 mg Q12 PO 03/04/17 21:00 03/18/17 20:59 03/05/17 09:41 10 MG Acetaminophen (Tylenol Tab) 1,000 mg Q8 PO 03/04/17 22:30 04/03/17 22:29 03/05/17 06:14 1,000 MG Magnesium Hydroxide (Milk Of Magnesia Susp) 30 ml Q6H PRN PO 03/04/17 20:15 04/03/17 20:14 Bisacodyl (Dulcolax Supp) 10 mg DAILY PRN HI 03/04/17 20:15 04/03/17 20:14 Senna (Senokot Tab) 17.2 mg HS PO 03/04/17 21:00 04/03/17 20:59 03/04/17 22:40 17.2 MG Docusate Sodium (coLACE CAP) 100 mg BID PO 03/04/17 21:00 04/03/17 20:59 03/05/17 09:33 100 MG Al Hydrox/Mg Hydrox/Simethicone (Maalox Max Susp) 15 ml Q4H PRN PO 03/04/17 20:15 04/03/17 20:14 Multivitamins (Multivitamin Tab) 1 tab QAM PO 03/05/17 09:00 04/04/17 08:59 03/05/17 09:33 1 TAB Ondansetron HCl (Zofran Inj) 4 mg Q6H PRN IV 03/04/17 20:15 04/03/17 20:14 Ferrous Gluconate (Ferrous Gluconate Tab) 324 mg TIDM PO 03/05/17 08:30 04/04/17 08:29 03/05/17 09:35 324 MG Pantoprazole Sodium (Protonix Tab) 40 mg QAM PO 03/05/17 09:00 04/04/17 08:59 03/05/17 09:35 40 MG Tramadol HCl (Ultram Tab) 1 tablet for pain rating... Q4H PRN PO 03/04/17 20:15 04/03/17 20:14 03/05/17 06:30 100 MG Aspirin 81 mg 81 mg BID PO 03/04/17 21:00 04/03/17 20:59 03/05/17 09:33 81 MG Vancomycin HCl/ Sodium Chloride (Vancomycin Inj/ Nss 250ml) 267 ml @ 125 mls/hr Q18H IV 03/05/17 00:00 04/16/17 00:00 03/04/17 23:31 125 MLS/HR Vancomycin HCl (Consult) 1 ea UD PRN N/A 03/04/17 22:15 04/03/17 22:14 Fluticasone Propionate (Flonase Nasal [place]) 2 sprays HS MALICK 03/05/17 21:00 04/04/17 08:59 Review of Systems 10 system review performed and negative unless noted in HPI or below Physical Exam Date Time Temp Pulse Resp B/P Pulse Ox O2 Delivery O2 Flow Rate FiO2 03/05/17 11:01 36.4 67 18 111/54 93 Room Air 03/05/17 09:10 74 97 03/05/17 07:23 36.6 72 18 122/67 92 Room Air 03/05/17 03:40 36.9 83 16 150/70 99 Nasal Cannula 2.0 03/05/17 00:30 36.4 70 16 124/63 100 Nasal Cannula 2.0 03/04/17 23:39 Nasal Cannula 2.0 03/04/17 23:30 36.4 68 16 135/64 100 Nasal Cannula 2.0 03/04/17 22:33 36.4 78 16 156/81 98 Nasal Cannula 2.0 03/04/17 22:01 36.7 75 16 153/68 99 Nasal Cannula 2.0 03/04/17 21:30 Nasal Cannula 2.0 03/04/17 21:30 36.5 84 14 159/72 97 Nasal Cannula 2.0 03/04/17 21:30 Nasal Cannula 2.0 03/04/17 21:30 36.5 81 16 159/72 97 Nasal Cannula 2.0 03/04/17 21:15 36.8 79 20 147/74 97 Nasal Cannula 2 03/04/17 21:05 36.8 80 16 159/76 97 Nasal Cannula 2 03/04/17 20:55 85 17 163/78 97 Nasal Cannula 2 03/04/17 20:45 81 16 163/87 100 Mask 10 03/04/17 20:35 82 16 168/79 100 Mask 10 03/04/17 20:25 36.7 85 12 163/82 100 Mask 10 03/04/17 13:00 36.5 68 18 172/72 100 Room Air General Appearance: no apparent distress Head: normocephalic Eyes: EOMI Neck: no JVD Respiratory/Chest: + pertinent finding (crackles at the bases bilaterally) Cardiovascular: regular rate, rhythm, no murmur Abdomen/GI: normal bowel sounds, non tender, soft Extremities/Musculoskelatal: no calf tenderness, no pedal edema Neurologic/Psych: no motor/sensory deficits, oriented x 3, + pertinent finding (right knee bandaged) Skin: warm/dry Laboratory Results Last 24 Hours Test 03/05/17 06:30 White Blood Count 8.51 K/uL Red Blood Count 4.16 M/uL Hemoglobin 10.8 g/dL Hematocrit 34.7 % Mean Corpuscular Volume 83.4 fL Mean Corpuscular Hemoglobin 26.0 pg Mean Corpuscular Hemoglobin Concent 31.1 g/dl RDW Standard Deviation 48.1 fL RDW Coefficient of Variation 15.8 % Platelet Count 371 K/uL Mean Platelet Volume 8.9 fL Sodium Level 138 mmol/L Potassium Level 4.4 mmol/L Chloride Level 102 mmol/L Carbon Dioxide Level 29 mmol/L Anion Gap 7.0 mmol/L Blood Urea Nitrogen 15 mg/dl Creatinine 0.59 mg/dl Est Creatinine Clear Calc Drug Dose 54.2 ml/min Estimated GFR () 96.2 Estimated GFR (Non- 83.0 BUN/Creatinine Ratio 26.0 Random Glucose 147 mg/dl Calcium Level 9.3 mg/dl Assessment & Plan 86-year-old female postop day 1 with removal of hardware and insertion of antibiotic spacer in the right knee -pain management, DVT prophylaxis, PT per primary team -ABX per ID Hypertension -Norvasc 5 mg daily -Hold benazepril 10 mg daily in the postop setting -Check PRP in the morning, may resume benazepril tomorrow if BP will tolerate Acute on chronic anemia-hgb stable -Continue ferrous gluconate TID History of carotid artery stenosis -Continue aspirin 81 mg daily GERD -Continue PPI Thank you for this consultation. We will continue to follow. Additional Copies To Alec Mcarthur M.D.
[2017-03-05] MEDS: VANCOMYCIN INJ 850 MG in SODIUM CHLORIDE 0.9% 250ML 250 ML IV SCH (17:57)
[2017-03-05] MEDS: FLUTICASONE PROPIONATE NA SPR 16 GM BTL NAE SCH (20:58)
[2017-03-05] MEDS: SENNA 8.6 MG TAB PO SCH (20:59)
[2017-03-05] MEDS: SIMVASTATIN 10 MG TAB PO SCH (20:59)
[2017-03-06] MEDS: TRAMADOL HCL 50 MG TAB PO PRN (00:50)
[2017-03-06] MEDS: ACETAMINOPHEN 500 MG TAB PO SCH ×3 (05:18→21:48)
[2017-03-06 06:02] LABS: BASO % 0.3 %; BASO ABS # 0.02 K/uL (0-0.2); COMPLETE YES; EOS % 1.7 %; HEMATOCRIT 31.5 % (37-47); IG% 0.2 %; LYMPH % 32.8 %; LYMPH ABS # 2.09 K/uL (1.2-3.4); MEAN CELL VOLUME 82.5 fL (80-100); MEAN CORPUSCULAR HEMOGLOBIN 25.7 pg (25-34); MEAN CORPUSCULAR HGB CONC 31.1 g/dl (32-36); MEAN PLATELET VOLUME 8.5 fL (7.4-10.4); MONO % 17.6 %; NEUT % 47.4 %; PLATELET COUNT 284 K/uL (130-400); RED BLOOD COUNT 3.82 M/uL (4.2-5.4); WHITE BLOOD COUNT 6.38 K/uL (4.8-10.8)
[2017-03-06 06:30] LABS: BUN/CREATININE RATIO 34.1 (10-20); CALCIUM 9.2 mg/dl (8.5-10.1); CREATININE 0.44 mg/dl (0.60-1.20); POTASSIUM 4.2 mmol/L (3.5-5.1)
[2017-03-06 07:00] VITALS: BP 143/58; PULSE 75; TEMP 36.8; O2SAT 92
[2017-03-06] MEDS: PANTOprazole SOD 40 MG TAB PO SCH (09:38)
[2017-03-06] MEDS: AMLODIPINE BESYLATE 5 MG TAB PO SCH (09:38)
[2017-03-06] MEDS: ASPIRIN 81 MG ECTAB PO SCH (09:38)
[2017-03-06] MEDS: MULTIVITAMIN TAB PO SCH (09:40)
[2017-03-06] MEDS: MAGNESIUM OXIDE 400 MG TAB PO SCH ×2 (09:40→21:02)
[2017-03-06] MEDS: DOCUSATE SODIUM 100 MG CAP PO SCH ×2 (09:40→21:02)
[2017-03-06] MEDS: FERROUS GLUCONATE 324 MG TAB PO SCH ×3 (09:40→18:13)
[2017-03-06] MEDS: CALCIUM 600MG + VIT D 400 IU TAB PO SCH (09:40)
[2017-03-06] MEDS: OXYCODONE HCL 10 MG TABCR (OXYCONTIN) PO SCH ×2 (09:45→21:07)
[2017-03-06] MEDS: POLYETHYLENE (MIRALAX) 17 GM PACK PO SCH ×2 (10:14→21:03)
[2017-03-06] MEDS ORDERED: VANCOMYCIN TROUGH SCH (11:30)
--- NOTE | 2017-03-06 11:48 | Orthopedic Progress Note ---
Orthopedic Progress Note Date of Service March 06, 2017. Subjective Post OP Day: 2 Reports: feeling well, pain controlled w PO medications, Denies: SOB, calf pain , chest pain, complaints, light headedness, nausea / vomiting Objective dressing C/D/I, A&O x3 Date Time Temp Pulse Resp B/P Pulse Ox O2 Delivery O2 Flow Rate FiO2 03/06/17 08:18 Room Air 03/06/17 07:00 36.8 75 16 143/58 92 Room Air 03/06/17 00:30 Room Air 03/05/17 23:50 36.7 74 18 145/65 93 Room Air 03/05/17 16:20 Room Air 03/05/17 14:57 36.5 72 16 131/71 94 Room Air Laboratory Results 24 Hours: Test 03/06/17 05:49 White Blood Count 6.38 K/uL Red Blood Count 3.82 M/uL Hemoglobin 9.8 g/dL Hematocrit 31.5 % Mean Corpuscular Volume 82.5 fL Mean Corpuscular Hemoglobin 25.7 pg Mean Corpuscular Hemoglobin Concent 31.1 g/dl Platelet Count 284 K/uL Mean Platelet Volume 8.5 fL Neutrophils (%) (Auto) 47.4 % Lymphocytes (%) (Auto) 32.8 % Monocytes (%) (Auto) 17.6 % Eosinophils (%) (Auto) 1.7 % Basophils (%) (Auto) 0.3 % Neutrophils # (Auto) 3.03 K/uL Lymphocytes # (Auto) 2.09 K/uL Monocytes # (Auto) 1.12 K/uL Eosinophils # (Auto) 0.11 K/uL Basophils # (Auto) 0.02 K/uL Assessment & Plan Assessment: POD #2, right knee extensive debridement of knee joint ,bone ,subcutaneous and skin,synovectomy,excision extensive scar tissue,explant of patella component and tibial poly with tibial poly exchange and stimulan vancomycin bead placement and closure over drains Plan: PT/ OT- WBAT with immobilizer, NO knee flexion. DVT proph- ASA Await cultures and ID input, on Vanco currently. Disposition- Home w PICC and 6 wks antibxs per ID. will start patient on lovenox tomorrow am PICC order placed Discharge Planning Discharge Planning: home DVT Prophylaxis: Lovenox
[2017-03-06] MEDS: VANCOMYCIN INJ 850 MG in SODIUM CHLORIDE 0.9% 250ML 250 ML IV SCH ×2 (12:40→23:26)
--- NOTE | 2017-03-06 14:47 | Pharmacy Progress Note ---
Pharmacy Abx Dose Progress Nt Date of Service March 06, 2017. Pharmacy Dosing Scope The patient is currently receiving the following antimicrobial agents per Pharmacy consult: * VANCOMYCIN 850 mg IV every 18 hours Objective Height (Feet): 5 Height (Inches): 2 Weight (Kilograms): 56.80 Vital Signs (Past 12Hrs) Vital Signs Past 12 Hours Date Time Temp Pulse Resp B/P Pulse Ox O2 Delivery O2 Flow Rate FiO2 03/06/17 08:18 Room Air 03/06/17 07:00 36.8 75 16 143/58 92 Room Air Lab Results (24Hrs) Test 03/06/17 05:49 03/06/17 11:46 White Blood Count 6.38 K/uL (4.8-10.8) Red Blood Count 3.82 M/uL (4.2-5.4) Hemoglobin 9.8 g/dL (12.0-16.0) Hematocrit 31.5 % (37-47) Mean Corpuscular Volume 82.5 fL (80-100) Mean Corpuscular Hemoglobin 25.7 pg (25-34) Mean Corpuscular Hemoglobin Concent 31.1 g/dl (32-36) Platelet Count 284 K/uL (130-400) Mean Platelet Volume 8.5 fL (7.4-10.4) Neutrophils (%) (Auto) 47.4 % Lymphocytes (%) (Auto) 32.8 % Monocytes (%) (Auto) 17.6 % Eosinophils (%) (Auto) 1.7 % Basophils (%) (Auto) 0.3 % Neutrophils # (Auto) 3.03 K/uL (1.4-6.5) Lymphocytes # (Auto) 2.09 K/uL (1.2-3.4) Monocytes # (Auto) 1.12 K/uL (0.11-0.59) Eosinophils # (Auto) 0.11 K/uL (0-0.5) Basophils # (Auto) 0.02 K/uL (0-0.2) RDW Standard Deviation 47.7 fL (36.4-46.3) RDW Coefficient of Variation 15.8 % (11.5-14.5) Immature Granulocyte % (Auto) 0.2 % Immature Granulocyte # (Auto) 0.01 K/uL (0.00-0.02) Sodium Level 136 mmol/L (136-145) Potassium Level 4.2 mmol/L (3.5-5.1) Chloride Level 100 mmol/L (98-107) Carbon Dioxide Level 31 mmol/L (21-32) Anion Gap 5.0 mmol/L (3-11) Blood Urea Nitrogen 15 mg/dl (7-18) Creatinine 0.44 mg/dl (0.60-1.20) Est Creatinine Clear Calc Drug Dose 72.6 ml/min Estimated GFR () 105.9 Estimated GFR (Non- 91.4 BUN/Creatinine Ratio 34.1 (10-20) Random Glucose 94 mg/dl (70-99) Calcium Level 9.2 mg/dl (8.5-10.1) Vancomycin Level Trough 6.4 mcg/ml (SEE COMMENT) Micro Results Date/Time Source Procedure Growth Status 03/05/17 11:35 Blood Blood Culture Pending Received 03/05/17 11:30 Blood Blood Culture Pending Received 03/04/17 00:00 Tissue Knee Right Gram Stain - Final Resulted 03/04/17 00:00 Bacterial Culture - Preliminary Staphylococcus Aureus Staph Species Staph Species#2 Resulted 03/04/17 00:00 Drainage-Deep Knee Right Gram Stain - Final Resulted 03/04/17 00:00 Bacterial Culture - Preliminary Staphylococcus Aureus Resulted 03/04 R knee tissue and drainage cultures growing MSSA (vanco DEQUAN = 2) Risk Factors for Resistance * Hospitalization for 48 hours or more within the past 90 days (admit 02/2016 for poly exchange and I/T/D) * Antimicrobial use within the last 90 days ([facility] 02/2016) Assessment & Plan Assessment 86 year old female receiving VANCOMYCIN 850mg IV Q 18 hours for treatment of R TKA infection * Day # 3 of antimicrobial therapy * MSSA growing in cultures from knee (vancomycin DEQUAN = 2) * Renal fxn appears stable, good UO over last 24 hrs, VSS * POD #2, right knee extensive debridement of knee joint ,bone ,subcutaneous and skin,synovectomy,excision extensive scar tissue,explant of patella component and tibial poly with tibial poly exchange and stimulan vancomycin bead placement and closure over drains Plan Vancomycin IV * Trough level of 6.4 mcg/mL is subtherapeutic. It was however drawn prior to achieving steady-state, however unlikely to reach our goal even with repeat dosing. * Change to 850 mg IV every 12 hours * Goal trough level for bone/joint infxn and organism w/ DEQUAN = 2 : 15 to 20 mcg/ mL (closer to 20 preferred with this DEQUAN) * Trough level ordered for: 03/08/17 Pharmacy will continue to follow and will adjust dose/frequency as necessary. Thank you.
[2017-03-06 15:20] VITALS: BP 128/66; PULSE 84; TEMP 36.9; O2SAT 93
[2017-03-06] MEDS: OXYCODONE HCL IR 5 MG TAB (IMMEDIATE RELEASE) PO PRN (20:08)
--- NOTE | 2017-03-06 20:55 | Progress Note ---
Subjective Date of Service: March 06, 2017. Subjective Pt evaluation today including: conversation w/ patient, physical exam, chart review, lab review, review of inpatient medication list Pain: right knee PO Intake: fair Voiding: no voiding problems pt denies c/o sob, cough, chest pain, abd pain reports constipation this is a chronic problem; in fact, she takes go-lytely at home for this at times Problem List Medical Problems: (1) Closed head injury Status: Acute (2) Facial laceration Status: Acute (3) Fall Status: Acute (4) Fracture of left distal radius Status: Acute (5) Nausea Status: Acute (6) UTI (urinary tract infection) Status: Acute Review of Systems Constitutional: No chills, No fever Respiratory: No cough, No shortness of breath, No sputum Cardiac: No chest pain, No orthopnea Abdomen: No pain Objective Vital Signs Date Time Temp Pulse Resp B/P Pulse Ox O2 Delivery O2 Flow Rate FiO2 03/06/17 16:35 Room Air 03/06/17 15:20 36.9 84 16 128/66 93 Room Air 03/06/17 08:18 Room Air 03/06/17 07:00 36.8 75 16 143/58 92 Room Air 03/06/17 00:30 Room Air 03/05/17 23:50 36.7 74 18 145/65 93 Room Air Physical Exam General Appearance: no apparent distress ENT: pharynx normal Neck: no JVD Respiratory/Chest: lungs clear, no respiratory distress, no accessory muscle use Cardiovascular: regular rate, rhythm, no gallop Abdomen: normal bowel sounds, non tender, soft, no organomegaly Extremities: + pedal edema (right ankle, 1+), + pertinent finding (no edema left ankle) Neurologic/Psychiatric: alert, oriented x 3 Skin: + pertinent finding (right leg/knee in immobilizer ) Laboratory Results Last 24 Hours Test 03/06/17 05:49 03/06/17 11:46 White Blood Count 6.38 K/uL Red Blood Count 3.82 M/uL Hemoglobin 9.8 g/dL Hematocrit 31.5 % Mean Corpuscular Volume 82.5 fL Mean Corpuscular Hemoglobin 25.7 pg Mean Corpuscular Hemoglobin Concent 31.1 g/dl Platelet Count 284 K/uL Mean Platelet Volume 8.5 fL Neutrophils (%) (Auto) 47.4 % Lymphocytes (%) (Auto) 32.8 % Monocytes (%) (Auto) 17.6 % Eosinophils (%) (Auto) 1.7 % Basophils (%) (Auto) 0.3 % Neutrophils # (Auto) 3.03 K/uL Lymphocytes # (Auto) 2.09 K/uL Monocytes # (Auto) 1.12 K/uL Eosinophils # (Auto) 0.11 K/uL Basophils # (Auto) 0.02 K/uL RDW Standard Deviation 47.7 fL RDW Coefficient of Variation 15.8 % Immature Granulocyte % (Auto) 0.2 % Immature Granulocyte # (Auto) 0.01 K/uL Sodium Level 136 mmol/L Potassium Level 4.2 mmol/L Chloride Level 100 mmol/L Carbon Dioxide Level 31 mmol/L Anion Gap 5.0 mmol/L Blood Urea Nitrogen 15 mg/dl Creatinine 0.44 mg/dl Est Creatinine Clear Calc Drug Dose 72.6 ml/min Estimated GFR () 105.9 Estimated GFR (Non- 91.4 BUN/Creatinine Ratio 34.1 Random Glucose 94 mg/dl Calcium Level 9.2 mg/dl Vancomycin Level Trough 6.4 mcg/ml Assessment and Plan 86yo female - 1. chronic infected right TKR - POD #1 - debridement of knee joint, bone, subcutaneous and skin, synovectomy, excision extensive scar tissue, explant of patella component and tibial poly with tibial poly exchange and stimulan vancomycin bead placement - per ortho and ID 2. constipation - add miralax BID in addition to senna and colace 3. HTN - controlled w/ current meds 4. h/o TIA - noted; resume aspirin when ok with ortho 5. DVT proph - agree w/ lovenox daily 6. h/o HUSSEIN - has never been treated 7. GERD - PPI Will continue to follow.
[2017-03-06] MEDS: FLUTICASONE PROPIONATE NA SPR 16 GM BTL NAE SCH (21:02)
[2017-03-06] MEDS: SIMVASTATIN 10 MG TAB PO SCH (21:04)
[2017-03-06] MEDS: SENNA 8.6 MG TAB PO SCH (21:04)
[2017-03-06 22:36] VITALS: BP 158/69; PULSE 81; TEMP 37.1; O2SAT 94
[2017-03-07] MEDS: ACETAMINOPHEN 500 MG TAB PO SCH ×3 (05:47→21:44)
[2017-03-07 06:07] LABS: BASO % 0.8 %; BASO ABS # 0.04 K/uL (0-0.2); EOS % 2.5 %; HEMATOCRIT 27.7 % (37-47); LYMPH % 30.6 %; LYMPH ABS # 1.62 K/uL (1.2-3.4); MEAN CELL VOLUME 83.2 fL (80-100); MEAN CORPUSCULAR HEMOGLOBIN 26.4 pg (25-34); MEAN CORPUSCULAR HGB CONC 31.8 g/dl (32-36); MEAN PLATELET VOLUME 8.9 fL (7.4-10.4); MONO % 19.5 %; NEUT % 46.6 %; PLATELET COUNT 246 K/uL (130-400); RED BLOOD COUNT 3.33 M/uL (4.2-5.4); WHITE BLOOD COUNT 5.29 K/uL (4.8-10.8)
[2017-03-07 06:36] LABS: COMPLETE YES
[2017-03-07 06:56] LABS: BUN/CREATININE RATIO 28.2 (10-20); CALCIUM 9.2 mg/dl (8.5-10.1); CREATININE 0.33 mg/dl (0.60-1.20); POTASSIUM 3.9 mmol/L (3.5-5.1)
--- NOTE | 2017-03-07 07:18 | Orthopedic Progress Note ---
Orthopedic Progress Note Date of Service March 07, 2017. Subjective Post OP Day: 3 Reports: feeling well, pain controlled w PO medications, Denies: SOB, calf pain , chest pain, complaints, light headedness, nausea / vomiting Objective calves soft nontender, N/V intact, capillary refill less than 2 sec., dressing C /D/I, A&O x3, toes mobile, hemovac drainage (75cc/8 hours) Date Time Temp Pulse Resp B/P Pulse Ox O2 Delivery O2 Flow Rate FiO2 03/06/17 23:15 Room Air 03/06/17 22:36 37.1 81 16 158/69 94 Room Air 03/06/17 16:35 Room Air 03/06/17 15:20 36.9 84 16 128/66 93 Room Air 03/06/17 08:18 Room Air Laboratory Results 24 Hours: Test 03/07/17 05:35 White Blood Count 5.29 K/uL Red Blood Count 3.33 M/uL Hemoglobin 8.8 g/dL Hematocrit 27.7 % Mean Corpuscular Volume 83.2 fL Mean Corpuscular Hemoglobin 26.4 pg Mean Corpuscular Hemoglobin Concent 31.8 g/dl Platelet Count 246 K/uL Mean Platelet Volume 8.9 fL Neutrophils (%) (Auto) 46.6 % Lymphocytes (%) (Auto) 30.6 % Monocytes (%) (Auto) 19.5 % Eosinophils (%) (Auto) 2.5 % Basophils (%) (Auto) 0.8 % Neutrophils # (Auto) 2.47 K/uL Lymphocytes # (Auto) 1.62 K/uL Monocytes # (Auto) 1.03 K/uL Eosinophils # (Auto) 0.13 K/uL Basophils # (Auto) 0.04 K/uL Assessment & Plan Assessment: POD #3, right knee extensive debridement of knee joint ,bone ,subcutaneous and skin,synovectomy,excision extensive scar tissue,explant of patella component and tibial poly with tibial poly exchange and stimulan vancomycin bead placement and closure over drains Plan: PT/ OT- WBAT with immobilizer, NO knee flexion. DVT proph- ASA Await cultures and ID input, on Vanco currently. Disposition- Home w PICC and 6 wks antibxs per ID. PICC placed yesterday, awaiting final recommendation on Antibiotics Knee cultures showing S. Aureus H/H- 8.8/27.7- asymptomatic Discharge Planning Discharge Planning: home DVT Prophylaxis: Lovenox
[2017-03-07 07:36] VITALS: BP 144/72; PULSE 80; TEMP 37.1; O2SAT 91
[2017-03-07] MEDS: CALCIUM 600MG + VIT D 400 IU TAB PO SCH (08:59)
[2017-03-07] MEDS: FERROUS GLUCONATE 324 MG TAB PO SCH ×3 (08:59→18:15)
[2017-03-07] MEDS: OXYCODONE HCL 10 MG TABCR (OXYCONTIN) PO SCH ×2 (08:59→21:00)
[2017-03-07] MEDS: DOCUSATE SODIUM 100 MG CAP PO SCH ×2 (09:00→21:41)
[2017-03-07] MEDS: MAGNESIUM OXIDE 400 MG TAB PO SCH ×2 (09:00→21:43)
[2017-03-07] MEDS: POLYETHYLENE (MIRALAX) 17 GM PACK PO SCH ×2 (09:00→21:43)
[2017-03-07] MEDS: MULTIVITAMIN TAB PO SCH (09:01)
[2017-03-07] MEDS: AMLODIPINE BESYLATE 5 MG TAB PO SCH (09:01)
[2017-03-07] MEDS: PANTOprazole SOD 40 MG TAB PO SCH (09:02)
[2017-03-07] MEDS: ENOXAPARIN 40 MG/0.4 ML SYR SQ SCH (09:04)
[2017-03-07] MEDS: VANCOMYCIN INJ 850 MG in SODIUM CHLORIDE 0.9% 250ML 250 ML IV SCH ×2 (12:18→23:46)
--- NOTE | 2017-03-07 12:26 | Hospitalist Progress Note ---
Hospitalist Progress Note Date of Service March 07, 2017. (Cecille Flores PA-C) Subjective Pt evaluation today including: conversation w/ patient, physical exam, chart review, lab review, review of studies PO Intake: Good Voiding: no voiding problems The patient was seen and examined this morning. She is sitting upright at bedside eating lunch. Patient notes that her right knee is only painful whenever she gets out of bed and into the chair, its not painful when she is walking or bearing weight. At best she has 20% of her knee function as per ortho. She is under the impression that she will need continued IV antibiotics for an extended time and that she'll be driving here to have them administer, as her insurance doesn't pay for home health services. She has not had a bowel movement last Wednesday, but reports this is been a chronic problem. MiraLAX was added to her regimen yesterday. Additional Comments: Constitutional: No fever, sweats or chills Eyes: No diplopia, no worsening or blurred vision ENT: normal hearing, no trouble swallowing Respiratory: No cough, sputum, dyspnea at rest or on exertion Cardiovascular: No chest pain, tightness or palpitations Abdomen: No pain, nausea, vomiting, diarrhea or constipation Musculoskeletal: + R knee joint pain, no swelling Neurologic: No weakness, numbness/tingling, or balance problems Psychiatric: No anxiety or depression Skin: No rash or itch (Cecille Flores PA-C) Objective Vital Signs Date Time Temp Pulse Resp B/P Pulse Ox O2 Delivery O2 Flow Rate FiO2 03/07/17 07:36 37.1 80 18 144/72 91 Room Air 03/06/17 23:15 Room Air 03/06/17 22:36 37.1 81 16 158/69 94 Room Air 03/06/17 16:35 Room Air 03/06/17 15:20 36.9 84 16 128/66 93 Room Air (Cecille Flores PA-C) Physical Exam Notes: General: awake, alert, no apparent distress, sitting up at bedside Head: Normocephalic, atraumatic ENT: PERRL, EOMI, no pharyngeal exudate, mucous membranes moist Chest: Clear to auscultation, on room air, no adventitious breath sounds Cardiac: Regular rate and rhythm, no murmur, no JVD, normal peripheral pulses, good capillary refill Abdominal: NABS x 4 quadrants, soft, nontender to palpation, no rebound, guarding or tenderness Extremities: R leg elevated, potassium place, Sree wrap going from that to her thigh, brace in place. No peripheral edema or erythema, calfs nontender to palpation Psych: Normal mood and affect Neuro: AAO x 3, speech is clear, no peripheral sensory deficits (Cecille Flores PA-C) Laboratory Results Last 24 Hours Test 03/07/17 05:35 White Blood Count 5.29 K/uL Red Blood Count 3.33 M/uL Hemoglobin 8.8 g/dL Hematocrit 27.7 % Mean Corpuscular Volume 83.2 fL Mean Corpuscular Hemoglobin 26.4 pg Mean Corpuscular Hemoglobin Concent 31.8 g/dl Platelet Count 246 K/uL Mean Platelet Volume 8.9 fL Neutrophils (%) (Auto) 46.6 % Lymphocytes (%) (Auto) 30.6 % Monocytes (%) (Auto) 19.5 % Eosinophils (%) (Auto) 2.5 % Basophils (%) (Auto) 0.8 % Neutrophils # (Auto) 2.47 K/uL Lymphocytes # (Auto) 1.62 K/uL Monocytes # (Auto) 1.03 K/uL Eosinophils # (Auto) 0.13 K/uL Basophils # (Auto) 0.04 K/uL RDW Standard Deviation 49.0 fL RDW Coefficient of Variation 16.0 % Immature Granulocyte % (Auto) 0.0 % Immature Granulocyte # (Auto) 0.00 K/uL Red Blood Cell Morphology Unremarkable Sodium Level 142 mmol/L Potassium Level 3.9 mmol/L Chloride Level 103 mmol/L Carbon Dioxide Level 33 mmol/L Anion Gap 6.0 mmol/L Blood Urea Nitrogen 9 mg/dl Creatinine 0.33 mg/dl Est Creatinine Clear Calc Drug Dose 96.8 ml/min Estimated GFR () 116.5 Estimated GFR (Non- 100.5 BUN/Creatinine Ratio 28.2 Random Glucose 90 mg/dl Calcium Level 9.2 mg/dl (Cecille Flores PA-C) Assessment and Plan 86yo female s/p Right TKR on 03/05/17 Chronic infected right TKR - POD #2 - s/p debridement of knee joint, bone, subcutaneous and skin, synovectomy, excision extensive scar tissue, explant of patella component and tibial poly with tibial poly exchange and stimulant vancomycin bead placement - Cultures with + MSSA- antibiotics per ID - BCx NGTD - H&H 8.8/27.7 - asymptomatic Constipation - Cont miralax BID in addition to senna and colace - Last bm was Wednesday - pt sometimes uses go-lytely at home for this HTN - controlled w/ Norvasc 5 mg QAM h/o TIA - noted; resume aspirin when ok with ortho h/o HUSSEIN - has never been treated GERD - PPI DVT ppx: lovenox daily CODE STATUS: FULL CODE Disposition: From home, lives alone, will need extended antibiotics, CM to assist with discharge planning (Cecille Flores PA-C) Attending Attestation: Chart reviewed and care plan d/w BRUNILDA Flores. I agree with the huddleston components of her documentation. Wilmer Canales MD (Wilmer Canales MD)
[2017-03-07 15:03] VITALS: BP 131/66; PULSE 76; TEMP 36.9; O2SAT 96
[2017-03-07] MEDS: FLUTICASONE PROPIONATE NA SPR 16 GM BTL NAE SCH (21:41)
[2017-03-07] MEDS: SIMVASTATIN 10 MG TAB PO SCH (21:42)
[2017-03-07] MEDS: SENNA 8.6 MG TAB PO SCH (21:43)
[2017-03-07] MEDS: TRAMADOL HCL 50 MG TAB PO PRN (21:49)
[2017-03-07 22:50] VITALS: BP 131/66; PULSE 83; TEMP 36.9; O2SAT 95
[2017-03-08] MEDS: ACETAMINOPHEN 500 MG TAB PO SCH ×3 (05:28→21:34)
[2017-03-08 05:36] LABS: BASO % 0.4 %; BASO ABS # 0.02 K/uL (0-0.2); EOS % 2.8 %; HEMATOCRIT 27.8 % (37-47); IG% 0.2 %; LYMPH % 30.7 %; LYMPH ABS # 1.73 K/uL (1.2-3.4); MEAN CORPUSCULAR HEMOGLOBIN 26.3 pg (25-34); MEAN CORPUSCULAR HGB CONC 31.3 g/dl (32-36); MEAN PLATELET VOLUME 8.9 fL (7.4-10.4); MONO % 15.1 %; NEUT % 50.8 %; PLATELET COUNT 253 K/uL (130-400); RED BLOOD COUNT 3.31 M/uL (4.2-5.4); WHITE BLOOD COUNT 5.63 K/uL (4.8-10.8)
[2017-03-08 07:30] VITALS: BP 136/70; PULSE 78; TEMP 36.9; O2SAT 96
[2017-03-08 08:15] LABS: COMPLETE YES
[2017-03-08] MEDS: OXYCODONE HCL 10 MG TABCR (OXYCONTIN) PO SCH ×2 (09:00→21:36)
[2017-03-08] MEDS: DOCUSATE SODIUM 100 MG CAP PO SCH ×2 (09:06→21:36)
[2017-03-08] MEDS: PANTOprazole SOD 40 MG TAB PO SCH (09:06)
[2017-03-08] MEDS: CALCIUM 600MG + VIT D 400 IU TAB PO SCH (09:06)
[2017-03-08] MEDS: FERROUS GLUCONATE 324 MG TAB PO SCH ×3 (09:06→17:53)
[2017-03-08] MEDS: MAGNESIUM OXIDE 400 MG TAB PO SCH ×2 (09:06→21:35)
[2017-03-08] MEDS: AMLODIPINE BESYLATE 5 MG TAB PO SCH (09:06)
[2017-03-08] MEDS: MULTIVITAMIN TAB PO SCH (09:07)
[2017-03-08] MEDS: POLYETHYLENE (MIRALAX) 17 GM PACK PO SCH ×2 (09:07→21:36)
[2017-03-08] MEDS: ENOXAPARIN 40 MG/0.4 ML SYR SQ SCH (09:12)
--- NOTE | 2017-03-08 09:27 | Progress Note ---
Subjective Date of Service: March 08, 2017. Subjective pt remains on vanco, tolerating well. no overnight events. creat, wbc nml. blood cultures negative x 2 sets. s/p picc line. afebrile. for /c home with IV abx Problem List Medical Problems: (1) Closed head injury Status: Acute (2) Facial laceration Status: Acute (3) Fall Status: Acute (4) Fracture of left distal radius Status: Acute (5) Nausea Status: Acute (6) UTI (urinary tract infection) Status: Acute Objective Vital Signs Date Time Temp Pulse Resp B/P Pulse Ox O2 Delivery O2 Flow Rate FiO2 03/08/17 07:30 36.9 78 18 136/70 96 Room Air 03/07/17 23:15 Room Air 03/07/17 22:50 36.9 83 16 131/66 95 Room Air 03/07/17 16:13 Room Air 03/07/17 15:03 36.9 76 16 131/66 96 Room Air Laboratory Results Item Value Date Time Gram Stain - Final Resulted 03/04/17 0000 Drainage-Deep Knee Right Gram Stain - Final Resulted 03/04/17 0000 Tissue Knee Right Blood Culture - Preliminary Resulted 03/05/17 1130 Blood NO GROWTH TO DATE. Blood Culture - Preliminary Resulted 03/05/17 1135 Blood NO GROWTH TO DATE. Last 24 Hours Test 03/08/17 05:08 White Blood Count 5.63 K/uL Red Blood Count 3.31 M/uL Hemoglobin 8.7 g/dL Hematocrit 27.8 % Mean Corpuscular Volume 84.0 fL Mean Corpuscular Hemoglobin 26.3 pg Mean Corpuscular Hemoglobin Concent 31.3 g/dl Platelet Count 253 K/uL Mean Platelet Volume 8.9 fL Neutrophils (%) (Auto) 50.8 % Lymphocytes (%) (Auto) 30.7 % Monocytes (%) (Auto) 15.1 % Eosinophils (%) (Auto) 2.8 % Basophils (%) (Auto) 0.4 % Neutrophils # (Auto) 2.86 K/uL Lymphocytes # (Auto) 1.73 K/uL Monocytes # (Auto) 0.85 K/uL Eosinophils # (Auto) 0.16 K/uL Basophils # (Auto) 0.02 K/uL RDW Standard Deviation 49.4 fL RDW Coefficient of Variation 16.1 % Immature Granulocyte % (Auto) 0.2 % Immature Granulocyte # (Auto) 0.01 K/uL Red Blood Cell Morphology Unremarkable Assessment and Plan (1) Infected Right TKA Assessment & Plan: continue with vanco, has had intolerance to ctx in past. will need 6 weeks min from time of OR, tentative stop date 04/15. will need weekly cbc, cmp, esr, vanco trough while on therapy, maintain 15-20. can follow in office post d/c. has followed with Shani Nathan. ok for d/c when home abx in place.
[2017-03-08] MEDS: TRAMADOL HCL 50 MG TAB PO PRN ×2 (11:22→21:33)
[2017-03-08] MEDS ORDERED: VANCOMYCIN TROUGH ONE (11:30)
[2017-03-08] MEDS: VANCOMYCIN INJ 850 MG in SODIUM CHLORIDE 0.9% 250ML 250 ML IV SCH (13:14)
[2017-03-08] MEDS ORDERED: DAPTOmycin IV 350 MG in SODIUM CHLORIDE 0.9% 50ML 50 ML IV SCH (15:00)
--- NOTE | 2017-03-08 15:08 | Orthopedic Progress Note ---
Orthopedic Progress Note Date of Service March 08, 2017. Subjective Post OP Day: 4 Reports: feeling well, Denies: SOB, calf pain, chest pain, light headedness, nausea / vomiting Objective calves soft nontender, N/V intact, dressing C/D/I, A&O x3, toes mobile Date Time Temp Pulse Resp B/P Pulse Ox O2 Delivery O2 Flow Rate FiO2 03/08/17 07:30 36.9 78 18 136/70 96 Room Air 03/08/17 07:30 Room Air 03/07/17 23:15 Room Air 03/07/17 22:50 36.9 83 16 131/66 95 Room Air 03/07/17 16:13 Room Air Laboratory Results 24 Hours: Test 03/08/17 05:08 White Blood Count 5.63 K/uL Red Blood Count 3.31 M/uL Hemoglobin 8.7 g/dL Hematocrit 27.8 % Mean Corpuscular Volume 84.0 fL Mean Corpuscular Hemoglobin 26.3 pg Mean Corpuscular Hemoglobin Concent 31.3 g/dl Platelet Count 253 K/uL Mean Platelet Volume 8.9 fL Neutrophils (%) (Auto) 50.8 % Lymphocytes (%) (Auto) 30.7 % Monocytes (%) (Auto) 15.1 % Eosinophils (%) (Auto) 2.8 % Basophils (%) (Auto) 0.4 % Neutrophils # (Auto) 2.86 K/uL Lymphocytes # (Auto) 1.73 K/uL Monocytes # (Auto) 0.85 K/uL Eosinophils # (Auto) 0.16 K/uL Basophils # (Auto) 0.02 K/uL Assessment & Plan Assessment: POD #4, right knee extensive debridement of knee joint ,bone ,subcutaneous and skin,synovectomy,excision extensive scar tissue,explant of patella component and tibial poly with tibial poly exchange and stimulan vancomycin bead placement and closure over drains Plan: PT/ OT- WBAT with immobilizer, NO knee flexion. DVT proph- ASA Await cultures and ID input, on DAPTO currently. Disposition- PICC and 6 wks antibxs per ID. PATIENT REQUESTING REFERRAL TO SNF.. PICC placed yesterday, awaiting final recommendation on Antibiotics Knee cultures showing S. Aureus H/H- 8.8/27.7- asymptomatic DR. KHAN TO SEE THE PATIENT TODAY. WILL LIKELY COMPLETE 6 WEEKS OF TREATMENT AND SEE HOW SHE DOES. IF SHE CONTINUES TO FAIL TREATMENT SHE WILL NEED EXCISION ARTHROPLASTY AND KNEE FUSION. Inhouse Planning Pain Management: Oxycontin, Ultram, Morphine, PO Tylenol, Oxy IR DVT Prophylaxis: TEDs, SCDs, ASA Discharge Planning Discharge Planning: home DVT Prophylaxis: Lovenox
[2017-03-08 15:10] VITALS: BP 131/68; PULSE 82; TEMP 36.7; O2SAT 96
--- NOTE | 2017-03-08 16:17 | Progress Note ---
Subjective Date of Service: March 08, 2017. Subjective pt has no complaints, ID recommends Vancomycin IV, will need case management to arrange Problem List Medical Problems: (1) Closed head injury Status: Acute (2) Facial laceration Status: Acute (3) Fall Status: Acute (4) Fracture of left distal radius Status: Acute (5) Nausea Status: Acute (6) UTI (urinary tract infection) Status: Acute Review of Systems Constitutional: No chills, No fever Respiratory: No cough, No shortness of breath Abdomen: No diarrhea, No nausea, No pain, No vomiting Musculoskeletal: + joint pain, + muscle pain Objective Vital Signs Date Time Temp Pulse Resp B/P Pulse Ox O2 Delivery O2 Flow Rate FiO2 03/08/17 07:30 36.9 78 18 136/70 96 Room Air 03/07/17 23:15 Room Air 03/07/17 22:50 36.9 83 16 131/66 95 Room Air 03/07/17 16:13 Room Air 03/07/17 15:03 36.9 76 16 131/66 96 Room Air Physical Exam General Appearance: WD/WN, + mild distress Neck: supple, no JVD Respiratory/Chest: chest non-tender, lungs clear, normal breath sounds Cardiovascular: regular rate, rhythm, no murmur Abdomen: normal bowel sounds, non tender, soft Laboratory Results Last 24 Hours Test 03/08/17 05:08 White Blood Count 5.63 K/uL Red Blood Count 3.31 M/uL Hemoglobin 8.7 g/dL Hematocrit 27.8 % Mean Corpuscular Volume 84.0 fL Mean Corpuscular Hemoglobin 26.3 pg Mean Corpuscular Hemoglobin Concent 31.3 g/dl Platelet Count 253 K/uL Mean Platelet Volume 8.9 fL Neutrophils (%) (Auto) 50.8 % Lymphocytes (%) (Auto) 30.7 % Monocytes (%) (Auto) 15.1 % Eosinophils (%) (Auto) 2.8 % Basophils (%) (Auto) 0.4 % Neutrophils # (Auto) 2.86 K/uL Lymphocytes # (Auto) 1.73 K/uL Monocytes # (Auto) 0.85 K/uL Eosinophils # (Auto) 0.16 K/uL Basophils # (Auto) 0.02 K/uL RDW Standard Deviation 49.4 fL RDW Coefficient of Variation 16.1 % Immature Granulocyte % (Auto) 0.2 % Immature Granulocyte # (Auto) 0.01 K/uL Red Blood Cell Morphology Unremarkable Assessment and Plan 86yo female s/p Right TKR on 03/05/17 Chronic infected right TKR - s/p debridement of knee joint, bone, subcutaneous and skin, synovectomy, excision extensive scar tissue, explant of patella component and tibial poly with tibial poly exchange and stimulant vancomycin bead placement - Cultures with + MSSA and mrsa - antibiotics per ID recommends sarah, will need case management to arrange Constipation miralax BID in addition to senna and colace - HTN - Norvasc 5 mg QAM TIA - ; resume aspirin when ok with ortho DVT ppx: lovenox daily CODE STATUS: FULL CODE
[2017-03-08] MEDS: FLUTICASONE PROPIONATE NA SPR 16 GM BTL NAE SCH (21:34)
[2017-03-08] MEDS: SIMVASTATIN 10 MG TAB PO SCH (21:37)
[2017-03-08] MEDS: SENNA 8.6 MG TAB PO SCH (21:37)
[2017-03-08 23:40] VITALS: BP 133/66; PULSE 73; TEMP 36.9; O2SAT 93
[2017-03-09] MEDS: ACETAMINOPHEN 500 MG TAB PO SCH (05:25)
[2017-03-09 05:43] LABS: HEMATOCRIT 27.3 % (37-47); MEAN CELL VOLUME 83.7 fL (80-100); MEAN CORPUSCULAR HEMOGLOBIN 26.7 pg (25-34); MEAN CORPUSCULAR HGB CONC 31.9 g/dl (32-36); MEAN PLATELET VOLUME 8.8 fL (7.4-10.4); PLATELET COUNT 283 K/uL (130-400); RED BLOOD COUNT 3.26 M/uL (4.2-5.4)
[2017-03-09 06:20] LABS: CREATININE 0.39 mg/dl (0.60-1.20)
--- NOTE | 2017-03-09 07:50 | Orthopedic Progress Note ---
Orthopedic Progress Note Date of Service March 09, 2017. Subjective Post OP Day: 5 Reports: feeling well, pain controlled w PO medications, Denies: SOB, calf pain , chest pain, complaints, light headedness, nausea / vomiting Objective calves soft nontender, N/V intact, capillary refill less than 2 sec., incision C /D/I, A&O x3, toes mobile no erythema, no drainage. Immobilizer in tact. Await placement to SNF Date Time Temp Pulse Resp B/P Pulse Ox O2 Delivery O2 Flow Rate FiO2 03/08/17 23:45 Room Air 03/08/17 23:40 36.9 73 16 133/66 93 Room Air 03/08/17 19:30 Room Air 03/08/17 16:00 Room Air 03/08/17 15:10 36.7 82 16 131/68 96 Room Air Laboratory Results 24 Hours: Test 03/09/17 05:10 Hematocrit 27.3 % Hemoglobin 8.7 g/dL Assessment & Plan Assessment: POD #5, right knee extensive debridement of knee joint ,bone ,subcutaneous and skin,synovectomy,excision extensive scar tissue,explant of patella component and tibial poly with tibial poly exchange and stimulan vancomycin bead placement and closure over drains Plan: PT/ OT- WBAT with immobilizer, NO knee flexion. DVT proph- ASA Await cultures and ID input, on DAPTO currently. Disposition- PICC and 6 wks antibxs per ID. PATIENT REQUESTING REFERRAL TO SNF.. PICC placed Knee cultures showing MRSA H/H- 8.7- asymptomatic COMPLETE 6 WEEKS OF TREATMENT AND SEE HOW SHE DOES. IF SHE CONTINUES TO FAIL TREATMENT SHE WILL NEED EXCISION ARTHROPLASTY AND KNEE FUSION. Inhouse Planning Pain Management: Oxycontin, Ultram, Morphine, PO Tylenol, Oxy IR DVT Prophylaxis: TEDs, SCDs, ASA Discharge Planning Discharge Planning: home DVT Prophylaxis: Lovenox
[2017-03-09] MEDS ORDERED: SIMV10TA5 PO (07:56)
[2017-03-09] MEDS ORDERED: MISCCAP80 PO (07:56)
[2017-03-09] MEDS ORDERED: MAGN400T6 PO (07:56)
[2017-03-09] MEDS ORDERED: CALC1TAB9 PO (07:56)
[2017-03-09] MEDS ORDERED: FLUT0.15 NAE (07:56)
[2017-03-09] MEDS ORDERED: OMEP20CA9 PO (07:56)
[2017-03-09] MEDS ORDERED: RXC5 PO (07:56)
[2017-03-09] MEDS ORDERED: DLCS PR (07:56)
[2017-03-09] MEDS ORDERED: MLXESC PO (07:56)
[2017-03-09] MEDS ORDERED: LTR510 PO (07:56)
[2017-03-09] MEDS ORDERED: CLC100 PO (07:56)
[2017-03-09] MEDS ORDERED: FRRG PO (07:56)
[2017-03-09] MEDS ORDERED: LVNIS40 SQ (07:56)
[2017-03-09] MEDS ORDERED: ASPI81TA28 PO (07:56)
--- NOTE | 2017-03-09 08:03 | Discharge Instructions ---
Discharge Instructions Date of Service March 09, 2017. 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 Discharge Goals Goal(s): Improve function Activity Recommendations Activity Level: Assistance Required Weightbearing Status: Right weightbearing (as tolerated) . Additional Information Patient informed of condition: Yes Advance Directives: Yes DNR: No Level of Care: Skilled Communicable Disease: Yes (MRSA) Prognosis: Improving Sarabia Catheter: No Instructions / Follow-Up Instructions / Follow-Up PT/ OT: Weight bearing as tolerated with walker and brace at all times right LE , ambulation, ADL's DVT proph- Lovenox x1mo IV Daptomycin daily X6 weeks as ordered Daily dressing changes to right knee. Ice/ elevate as needed. Pain meds and home meds as ordered. Follow w Dr. Christopher 12-14 days post op, call [phone] to confirm appt. Follow with Shani taylor Infectious Disease, patient is known to Shani, please have patient call to schedule first outpatient appt. Current Hospital Diet Patient's current hospital diet: Regular Diet Discharge Diet Recommended Diet: Regular Diet Procedures Procedures Performed: Right Total Knee Arthroplasty Removal, Placement of Cement Spacer and Antibiotic Beads Pending Studies Studies pending at discharge: no Medical Emergencies . Who to Call and When: Medical Emergencies: If at any time you feel your situation is an emergency, please call 911 immediately. . Non-Emergent Contact Non-Emergency issues call your: Primary Care Provider . . "Provider Documentation" section prepared by Naman Keenan. . Core Measure Problem Core Measures: VTE VTE Core Measures Date of VTE Diagnosis: March 09, 2017 Time of VTE Diagnosis: 08:04 Reason no anticoag overlap I/P: Treatment provided - N/A Reason no anticoag overlap @DC: Treatment provided - N/A [place] Drug Monitoring Program Search Results: patient reviewed within database, no issues identified
[2017-03-09 08:04] VITALS: BP 139/65; PULSE 77; TEMP 36.7; O2SAT 97
[2017-03-09 08:08] VITALS: O2SAT 97
--- NOTE | 2017-03-09 08:57 | Progress Note ---
Subjective Date of Service: March 09, 2017. Subjective pt changed to dapto yesterday by pharmacy secondary to vanco trough of 8.8. tolerating. remains afebrile. for d/c with plans for 6 weeks min IV abx via picc. Per ortho notes, pt is requesting admission to SNF. This may be difficult now that she is on dapto. wbc 5.1 today. blood cultures remain negative. no overnight events. Problem List Medical Problems: (1) Closed head injury Status: Acute (2) Facial laceration Status: Acute (3) Fall Status: Acute (4) Fracture of left distal radius Status: Acute (5) Nausea Status: Acute (6) UTI (urinary tract infection) Status: Acute Objective Vital Signs Date Time Temp Pulse Resp B/P Pulse Ox O2 Delivery O2 Flow Rate FiO2 03/09/17 08:08 97 Room Air 03/09/17 08:04 36.7 77 13 139/65 97 Room Air 03/08/17 23:45 Room Air 03/08/17 23:40 36.9 73 16 133/66 93 Room Air 03/08/17 19:30 Room Air 03/08/17 16:00 Room Air 03/08/17 15:10 36.7 82 16 131/68 96 Room Air Laboratory Results Item Value Date Time Blood Culture - Preliminary Resulted 03/05/17 1135 Blood NO GROWTH TO DATE. Blood Culture - Preliminary Resulted 03/05/17 1130 Blood NO GROWTH TO DATE. Gram Stain - Final Resulted 03/04/17 0000 Tissue Knee Right Gram Stain - Final Resulted 03/04/17 0000 Drainage-Deep Knee Right Last 24 Hours Test 03/08/17 12:00 03/09/17 05:10 Vancomycin Level Trough 8.8 mcg/ml White Blood Count 5.10 K/uL Red Blood Count 3.26 M/uL Hemoglobin 8.7 g/dL Hematocrit 27.3 % Mean Corpuscular Volume 83.7 fL Mean Corpuscular Hemoglobin 26.7 pg Mean Corpuscular Hemoglobin Concent 31.9 g/dl RDW Standard Deviation 49.4 fL RDW Coefficient of Variation 16.1 % Platelet Count 283 K/uL Mean Platelet Volume 8.8 fL Creatinine 0.39 mg/dl Est Creatinine Clear Calc Drug Dose 81.9 ml/min Estimated GFR () 110.2 Estimated GFR (Non- 95.1 Assessment and Plan (1) Infected Right TKA Assessment & Plan: She can continue with dapto, if able at SNF, would check weekly cbc, cmp, esr, cpk if on dapto. If she can not be placed due to dapto, could change to vanco as she was previously tolerating this but she will need weekly trough. follow with ID, has seen Shani Nathan in the past. ok for d/c from ID standpoint.
[2017-03-09] MEDS: POLYETHYLENE (MIRALAX) 17 GM PACK PO SCH (08:58)
[2017-03-09] MEDS: DOCUSATE SODIUM 100 MG CAP PO SCH (08:59)
[2017-03-09] MEDS: FERROUS GLUCONATE 324 MG TAB PO SCH (08:59)
[2017-03-09] MEDS: AMLODIPINE BESYLATE 5 MG TAB PO SCH (08:59)
[2017-03-09] MEDS: PANTOprazole SOD 40 MG TAB PO SCH (08:59)
[2017-03-09] MEDS: CALCIUM 600MG + VIT D 400 IU TAB PO SCH (08:59)
[2017-03-09] MEDS: ENOXAPARIN 40 MG/0.4 ML SYR SQ SCH (08:59)
[2017-03-09] MEDS: MULTIVITAMIN TAB PO SCH (08:59)
[2017-03-09] MEDS: MAGNESIUM OXIDE 400 MG TAB PO SCH (08:59)
[2017-03-09] MEDS: OXYCODONE HCL 10 MG TABCR (OXYCONTIN) PO SCH (09:00)
[2017-03-09 10:26] VITALS: BP 139/65; PULSE 77; TEMP 36.7; O2SAT 97
[2017-03-09] MEDS: TRAMADOL HCL 50 MG TAB PO PRN (11:03)
--- NOTE | 2017-03-12 16:05 | DISCHARGE SUMMARY ---
DISCHARGE DIAGNOSIS: Left total knee arthroplasty infection. CONSULTS: 1. Dr. Sabine Burton. 2. Osiris Hammond PA-C/Mike Vanessa D.O. COMPLICATIONS: None. PROCEDURES: Debridement of scar tissue, synovial cement removal and bone debridement with attempted removal of well-fixed femoral component with debridement of sinus tracts with remaining subcutaneous tissue skin when necessary with debridement being sharp debridement with rongeur and Versajet debridement, polyethylene bearing change with extraction of patella component and cement and placement of stimulant antibiotic beads intra-articular and subcutaneous by Dr. Christopher on 03/04/2017. BRIEF HISTORY: As dictated in history and physical. HOSPITAL SUMMARY: The patient was admitted on the above date and had the above-mentioned surgery performed which she tolerated well. Dr. Burton was consulted for infectious disease to help with plans for IV antibiotics, deep drainage from the knee. Right knee was sent along with tissues from the knee which showed 3 types of Staph aureus, one being MRSA. She was started on vancomycin and continued on vancomycin while we continued to follow her cultures. By her first postoperative day, she was feeling well and pain was controlled and she had no complaints. Dressings clean, dry and intact. Vital signs were stable. She is afebrile. Hemoglobin was 9.8 and the plans are to continue IV antibiotics and planned for PICC line with 6 weeks of IV antibiotics and follow cultures. She was continued on PT protocol as well and final antibiotics were chosen by Dr. Burton being vancomycin. PICC line had been placed. However, later on in the end of her stay she was then switched to daptomycin, which will be once daily and plans were for her to go to the [facility] post-discharge for further therapy and care. She was otherwise remaining medically stable and orthopedically stable and by 03/09/2017 it was felt she could be discharged to the [facility] for further care on 03/09/2017. For further review, please see chart. LAB AND X-RAY DATA: As per chart. DISCHARGE INSTRUCTIONS: The patient was discharged to the [facility] in stable condition. ACTIVITY LEVEL: Assistance required. Weightbearing as tolerated right lower extremity. The patient to have PT, OT, weightbearing as tolerated with a walker and brace at all times on the right lower extremity. Ambulation and ADLs. DVT prophylaxis with Lovenox x1 month, IV daptomycin daily x6 weeks as ordered. Daily dressing changes to the right knee. Ice and elevate as needed and follow up with Dr. Christopher in 12-14 days. Follow up with Shani Nathan from infectious disease within 7-10 days. DISCHARGE MEDICATIONS: Aluminium magnesium simethicone 30 mL suspension 15 mL p.o. q. 4 hours p.r.n., bisacodyl suppository 10 mg LA daily p.r.n., Colace 100 mg p.o. b.i.d., enoxaparin 40 mg subQ q.a.m., ferrous gluconate 324 mg p.o. t.i.d., oxycodone 5-10 mg p.o. q. 4 hours p.r.n., resume home meds as listed, stop taking vitamin C, cefadroxil, Centrum Silver and tramadol.
[2017-03-25] MEDS ORDERED: SIMV10TA2 PO (14:28)
[2017-03-25] MEDS ORDERED: ASPI81TA28 PO (14:28)
[2017-03-25] MEDS ORDERED: MISCCAP80 PO (14:28)
[2017-03-25] MEDS ORDERED: LTR510 PO (14:30)
[2017-03-25] MEDS ORDERED: ENOX40IN SQ (14:31)
[2017-03-25] MEDS ORDERED: ACET-1311 PO (14:32)
[2017-03-25] MEDS ORDERED: TRAM-10 PO (14:32)
[2017-03-25] MEDS ORDERED: PRLSR20 PO (14:33)
[2017-03-25] MEDS ORDERED: FLUT0.15 NAE (14:33)
[2017-03-25] MEDS ORDERED: MULT-513 PO (14:34)
[2017-03-25] MEDS ORDERED: CALC500T72 PO (14:35)
[2017-03-25] MEDS ORDERED: MULT-663 PO (14:36)
[2017-03-25] MEDS ORDERED: CHOL1000 PO (14:36)
[2017-03-25] MEDS ORDERED: MAGN400T6 PO (14:37)
[2017-03-25] MEDS ORDERED: DAPT500I IV (14:38)
== END 2017-03-09 11:19 | DRG 467 ==
LOC: ENRESERVTM → ENRESERVDT → C.ACU 12:30 → UNDOADMIN 12:47 → C.3E 12:47
PROVIDERS: ADMIT Orthopaedic Surgery Sports Medicine; ATTEND Orthopaedic Surgery Sports Medicine
PROC: 3E0U029 Introduction of Other Anti-infective into Joints, Open Approach (ICD-10-PCS; principal; 2017-03-04 07:00)
PROC: 0SRV0JZ Replacement of Right Knee Joint, Tibial Surface with Synthetic Substitute, Open Approach (ICD-10-PCS; principal; 2017-03-04 07:00)
PROC: 0SPC0JC Removal of Synthetic Substitute from Right Knee Joint, Patellar Surface, Open Approach (ICD-10-PCS; principal; 2017-03-04 07:00)
PROC: 0MBN0ZZ Excision of Right Knee Bursa and Ligament, Open Approach (ICD-10-PCS; principal; 2017-03-04 07:00)
PROC: 0SPC0JZ Removal of Synthetic Substitute from Right Knee Joint, Open Approach (ICD-10-PCS; principal; 2017-03-04 07:00)
PROC: 0JCN0ZZ Extirpation of Matter from Right Lower Leg Subcutaneous Tissue and Fascia, Open Approach (ICD-10-PCS; principal; 2017-03-04 07:00)
PROC: 02HV33Z Insertion of Infusion Device into Superior Vena Cava, Percutaneous Approach (ICD-10-PCS; 2017-03-06)
DX: T84.53XA Infection and inflammatory reaction due to internal right knee prosthesis, initial encounter (principal); M24.661 Ankylosis, right knee; I10 Essential (primary) hypertension; G47.33 Obstructive sleep apnea (adult) (pediatric); K21.9 Gastro-esophageal reflux disease without esophagitis; I65.29 Occlusion and stenosis of unspecified carotid artery; D64.9 Anemia, unspecified; B95.61 Methicillin susceptible Staphylococcus aureus infection as the cause of diseases classified elsewhere; K59.00 Constipation, unspecified; Y92.009 Unspecified place in unspecified non-institutional (private) residence as the place of occurrence of the external cause; Y83.1 Surgical operation with implant of artificial internal device as the cause of abnormal reaction of the patient, or of later complication, without mention of misadventure at the time of the procedure; Z96.652 Presence of left artificial knee joint; L03.115 Cellulitis of right lower limb; Z01.812 Encounter for preprocedural laboratory examination; Z01.810 Encounter for preprocedural cardiovascular examination

== ENCOUNTER → 2017-03-29 | Outpatient (CLI) | payer OTHER, BC ==
[~2017-03-29] MED LIST changes: +ACET-1311 PO; -ACETAMINOPHEN 500 MG TAB PO SCH; -ASCO500C3 PO; -BUPIVACAINE 0.5 % 5 MG/1 ML PF 10ML VIAL ONE; -BUPIVACAINE/EPINEPHRINE 0.25% 1:200,000 30 ML VIAL ONE; -CALC1TAB9 PO; +CALC500T72 PO; -CEFA500C PO; -CEFAZOLIN 1000MG/55 ML D5W 55 ML IV SCH; +CHOL1000 PO; -CeleBREX 200 MG CAP PO SCH; +DAPT500I IV; -DEXAMETHASONE 4 MG TAB PO SCH; -DEXAMETHASONE SOD INJ 4 MG/ML VIAL ONE; +ENOX40IN SQ; -GABAPENTIN 300 MG CAP PO SCH; -LACTATED RINGER'S 1000ML 1,000 ML IV SCH; -LACTATED RINGER'S 1000ML 500 ML IV ONE; -LACTATED RINGER'S 1000ML IV SCH; -METOCLOPRAMIDE HCL 10 MG TAB PO SCH; +MULT-513 PO; +MULT-663 PO; -MULTCHW PO; -OMEP20CA9 PO; -PATIENT'S HEIGHT AND/OR WEIGHT NEEDED SCH; -POLYMYXIN B SULFATE 100,000 UNITS in NSS 100ML IR SCH; +PRLSR20 PO; +SIMV10TA2 PO; -SIMV10TA5 PO; -VANCOMYCIN INJ 400 MG in NSS 100ML IR SCH; -VANCOMYCIN INJ 850 MG in SODIUM CHLORIDE 0.9% 250ML 250 ML IV SCH
== END | disposition home or self-care (01) ==
LOC: C.PAPS 16:24
PROVIDERS: ATTEND Obstetrics & Gynecology
DX: N81.11 Cystocele, midline (principal); Z01.419 Encounter for gynecological examination (general) (routine) without abnormal findings

== ENCOUNTER → 2017-05-10 | Outpatient (CLI) | payer OTHER, BC ==
[2017-05-10 14:39] LABS: BASO % 1.5 %; COMPLETE YES; EOS % 3.3 %; HEMATOCRIT 35.8 % (37-47); IG% 0.2 %; LYMPH % 41.2 %; LYMPH ABS # 2.71 K/uL (1.2-3.4); MEAN CELL VOLUME 82.9 fL (80-100); MEAN CORPUSCULAR HEMOGLOBIN 24.8 pg (25-34); MEAN CORPUSCULAR HGB CONC 29.9 g/dl (32-36); MEAN PLATELET VOLUME 9.5 fL (7.4-10.4); MONO % 17.2 %; NEUT % 36.6 %; PLATELET COUNT 342 K/uL (130-400); RED BLOOD COUNT 4.32 M/uL (4.2-5.4); WHITE BLOOD COUNT 6.58 K/uL (4.8-10.8)
[2017-05-10 14:46] LABS: ALT/SGPT 24 U/L (12-78); BLOOD UREA NITROGEN 19 mg/dl (7-18); C-REACTIVE PROTEIN < 0.29 mg/dl (0-0.29); CALCIUM 9.2 mg/dl (8.5-10.1); CARBON DIOXIDE 30 mmol/L (21-32); CHLORIDE 105 mmol/L (98-107); CREATININE 0.64 mg/dl (0.60-1.20); GLUCOSE 90 mg/dl (70-99); POTASSIUM 4.6 mmol/L (3.5-5.1); SODIUM 140 mmol/L (136-145)
[2017-05-10 14:49] LABS: ALB/GLOB RATIO 1.1 (0.9-2); ALKALINE PHOSPHATASE 89 U/L (45-117); AST/SGOT 15 U/L (15-37)
== END | disposition home or self-care (01) ==
LOC: C.LAB1850 12:38
PROVIDERS: ATTEND Physician Assistant
DX: M00.9 Pyogenic arthritis, unspecified (principal); A49.01 Methicillin susceptible Staphylococcus aureus infection, unspecified site

== ENCOUNTER → 2017-07-09 | Outpatient (CLI) | payer OTHER, BC ==
[2017-07-09 14:39] LABS: BASO ABS # 0.06 K/uL (0-0.2); COMPLETE YES; EOS % 1.2 %; HEMATOCRIT 34.5 % (37-47); IG% 0.2 %; LYMPH % 31.7 %; LYMPH ABS # 1.83 K/uL (1.2-3.4); MEAN CELL VOLUME 82.1 fL (80-100); MEAN CORPUSCULAR HEMOGLOBIN 25.5 pg (25-34); MEAN PLATELET VOLUME 9.6 fL (7.4-10.4); NEUT % 48.9 %; PLATELET COUNT 287 K/uL (130-400); WHITE BLOOD COUNT 5.78 K/uL (4.8-10.8)
[2017-07-09 15:09] LABS: ALT/SGPT 26 U/L (12-78); BLOOD UREA NITROGEN 19 mg/dl (7-18); BUN/CREATININE RATIO 35.7 (10-20); C-REACTIVE PROTEIN < 0.29 mg/dl (0-0.29); CALCIUM 9.3 mg/dl (8.5-10.1); CARBON DIOXIDE 30 mmol/L (21-32); CHLORIDE 105 mmol/L (98-107); CREATININE 0.53 mg/dl (0.60-1.20); GLUCOSE 110 mg/dl (70-99); POTASSIUM 4.2 mmol/L (3.5-5.1); SODIUM 139 mmol/L (136-145)
[2017-07-09 15:12] LABS: ALB/GLOB RATIO 1.3 (0.9-2); ALKALINE PHOSPHATASE 78 U/L (45-117); AST/SGOT 19 U/L (15-37)
== END | disposition home or self-care (01) ==
LOC: C.LAB1850 13:13
PROVIDERS: ATTEND Physician Assistant
DX: A49.01 Methicillin susceptible Staphylococcus aureus infection, unspecified site (principal)

== ENCOUNTER → 2017-07-09 | Outpatient (CLI) | payer OTHER, BC ==
--- NOTE | 2017-07-09 16:10 | MAMMOGRAPHY REPORT ---
BILATERAL DIGITAL SCREENING MAMMOGRAM WITH CAD: 07/09/2017 CLINICAL HISTORY: Routine screening. Patient has no complaints. TECHNIQUE: Current study was also evaluated with a Computer Aided Detection (CAD) system. Bilateral CC and MLO views were obtained. COMPARISON: Comparison is made to exams dated: 07/07/2016 mammogram, 07/05/2015 mammogram, 07/04/2014 m ammogram, 06/07/2013 mammogram, 06/06/2012 mammogram, and 06/04/2011 mammogram - [facility] enter. BREAST COMPOSITION: The tissue of both breasts is heterogeneously dense, which may obscure small mas ses. FINDINGS: No suspicious masses, calcifications, or areas of architectural distortion are noted in ei ther breast. There has been no significant interval change compared to prior exams. Prominent right axillary lymph node appears stable compared to the prior 2014 and 2008 exams, and is felt to be benig n given long-term stability. Scattered bilateral benign-appearing calcifications are again noted. IMPRESSION: ACR BI-RADS CATEGORY 2: BENIGN There is no mammographic evidence of malignancy. A 1 year screening mammogram is recommended. The pa tient will receive written notification of the results. Approximately 10% of breast cancers are not detected with mammography. A negative mammographic report should not delay biopsy if a clinically suggestive mass is present. Nuris Parks M.D. /:07/09/2017 14:46:07 Manager Trade: [facility] letter sent: Normal 1/2 BI-RADS Code: ACR BI-RADS Category 2: Benign
== END | disposition home or self-care (01) ==
LOC: C.MAMM 13:27
PROVIDERS: ATTEND Obstetrics & Gynecology
DX: Z12.31 Encounter for screening mammogram for malignant neoplasm of breast (principal); A49.01 Methicillin susceptible Staphylococcus aureus infection, unspecified site

== ENCOUNTER → 2017-10-13 | Outpatient (CLI) | payer OTHER, BC ==
[2017-10-13 17:30] LABS: BASO % 0.7 %; BASO ABS # 0.04 K/uL (0-0.2); COMPLETE YES; EOS % 2.1 %; IG% 0.2 %; LYMPH % 37.2 %; LYMPH ABS # 2.13 K/uL (1.2-3.4); MEAN CELL VOLUME 85.1 fL (80-100); MEAN CORPUSCULAR HEMOGLOBIN 26.2 pg (25-34); MEAN CORPUSCULAR HGB CONC 30.8 g/dl (32-36); MEAN PLATELET VOLUME 9.7 fL (7.4-10.4); MONO % 17.5 %; NEUT % 42.3 %; PLATELET COUNT 297 K/uL (130-400); RED BLOOD COUNT 4.23 M/uL (4.2-5.4); WHITE BLOOD COUNT 5.72 K/uL (4.8-10.8)
[2017-10-13 17:54] LABS: C-REACTIVE PROTEIN < 0.29 mg/dl (0-0.29); CHOLESTEROL 159 mg/dl (0-200); HDL CHOLESTEROL 78 mg/dl; LDL CHOLESTEROL CALCULATED 72 mg/dl; TRIGLYCERIDES 44 mg/dl (0-150); VERY LOW DENSITY LIPOPROT CALC 9 mg/dl
== END | disposition home or self-care (01) ==
LOC: C.LABBFT 12:06
PROVIDERS: ATTEND Physician Assistant Medical
DX: M00.9 Pyogenic arthritis, unspecified (principal); I10 Essential (primary) hypertension

== ENCOUNTER → 2017-12-07 | Outpatient (CLI) | payer OTHER, BC ==
--- NOTE | 2017-12-07 15:04 | DIAGNOSTIC IMAGING REPORT ---
RIBS UNILATERAL WITH PA CHEST CLINICAL HISTORY: S20.211A Contusion of rib on right [id number] trauma. Pain. COMPARISON STUDY: [phone] FINDINGS: Nondisplaced cortical fractures of the right eighth ninth and 10th ribs. No evidence pneumothorax. The remaining osseous structures are unremarkable. Mild chronic interstitial fibrotic change with no evidence for pneumothorax. No focal infiltrate. IMPRESSION: 1. Nondisplaced cortical fractures right eighth ninth and 10th ribs. 2. No evidence pneumothorax. The above report was generated using voice recognition software. It may contain grammatical, syntax or spelling errors. Electronically signed by: Naman Lee M.D. 12/07/2017 3:03 PM Dictated Date/Time: 12/07/2017 3:01 PM
== END | disposition home or self-care (01) ==
LOC: C.RAD 14:09
PROVIDERS: ATTEND Physician Assistant Medical
DX: S22.41XA Multiple fractures of ribs, right side, initial encounter for closed fracture (principal); X58.XXXA Exposure to other specified factors, initial encounter

== ENCOUNTER → 2018-01-14 | Outpatient (CLI) | payer OTHER, BC ==
[2018-01-14 14:44] LABS: BASO % 1.1 %; BASO ABS # 0.08 K/uL (0-0.2); EOS % 1.6 %; EOS ABS # 0.12 K/uL (0-0.5); HEMATOCRIT 37.9 % (37-47); HEMOGLOBIN 11.8 g/dL (12.0-16.0); IG# 0.01 K/uL (0.00-0.02); LYMPH % 28.9 %; LYMPH ABS # 2.17 K/uL (1.2-3.4); MEAN CELL VOLUME 85.2 fL (80-100); MEAN CORPUSCULAR HEMOGLOBIN 26.5 pg (25-34); MEAN CORPUSCULAR HGB CONC 31.1 g/dl (32-36); MEAN PLATELET VOLUME 9.3 fL (7.4-10.4); MONO % 10.4 %; MONO ABS # 0.78 K/uL (0.11-0.59); NEUT % 57.9 %; NEUT ABS # 4.34 K/uL (1.4-6.5); PLATELET COUNT 299 K/uL (130-400); RED CELL DISTRIBUTION WIDTH CV 17.1 % (11.5-14.5)
[2018-01-14 15:06] LABS: ALBUMIN 3.5 gm/dl (3.4-5.0); ALT/SGPT 23 U/L (12-78); AST/SGOT 15 U/L (15-37); BLOOD UREA NITROGEN 23 mg/dl (7-18); CALCIUM 8.9 mg/dl (8.5-10.1); CARBON DIOXIDE 28 mmol/L (21-32); CREATININE 0.73 mg/dl (0.60-1.20); GLUCOSE 105 mg/dl (70-99); POTASSIUM 4.1 mmol/L (3.5-5.1); SODIUM 138 mmol/L (136-145)
[2018-01-14 15:09] LABS: ALKALINE PHOSPHATASE 93 U/L (45-117)
== END | disposition home or self-care (01) ==
LOC: C.LAB1850 13:40
PROVIDERS: ATTEND Internal Medicine Infectious Disease
DX: M85.80 Other specified disorders of bone density and structure, unspecified site (principal); E61.8 Deficiency of other specified nutrient elements; E55.9 Vitamin D deficiency, unspecified; M00.9 Pyogenic arthritis, unspecified

== ENCOUNTER → 2018-02-21 | Outpatient (CLI) | payer OTHER, BC ==
[2018-02-21 15:04] LABS: HEMATOCRIT 38.9 % (37-47); HEMOGLOBIN 12.4 g/dL (12.0-16.0); MEAN CELL VOLUME 84.9 fL (80-100); MEAN CORPUSCULAR HEMOGLOBIN 27.1 pg (25-34); MEAN CORPUSCULAR HGB CONC 31.9 g/dl (32-36); MEAN PLATELET VOLUME 9.9 fL (7.4-10.4); PLATELET COUNT 312 K/uL (130-400); RED CELL DISTRIBUTION WIDTH CV 16.8 % (11.5-14.5); RED CELL DISTRIBUTION WIDTH SD 51.9 fL (36.4-46.3); WHITE BLOOD COUNT 5.78 K/uL (4.8-10.8)
== END | disposition home or self-care (01) ==
LOC: C.LAB1850 13:04
PROVIDERS: ATTEND Internal Medicine Infectious Disease
DX: L03.115 Cellulitis of right lower limb (principal)